=== PATIENT | female | born 1940 | race Caucasian/White ===

== ENCOUNTER 2020-02-06 15:23 | Outpatient (CLI) | payer MEDICARE, SELFPAY ==
--- NOTE | ~2020-02-06 | MM_ITS ---
EXAMINATION: MM screening jonathan BI w ronald HISTORY: Screening TECHNIQUE: Craniocaudal and mediolateral oblique 3-D tomosynthesis images were obtained and synthetic 2-D images were generated. CAD analysis was submitted and interpreted. COMPARISON: Comparison to multiple prior studies sequentially, with oldest reviewed study dated 09/17. BREAST PARENCHYMAL COMPOSITION: The breasts are heterogeneously dense, which may obscure small masses . FINDINGS: There is no evidence of suspicious mass, calcification, or architectural distortion to sugg est malignancy in either breast. There has been no suspicious interval change. IMPRESSION: 1. No mammographic evidence of malignancy. 2. Recommend routine screening mammography in one year. BI-RADS Category 1: Negative Reviewed, dictated and finalized at location A.
== END 2020-02-06 15:24 | disposition home or self-care (01) ==
LOC: ANHIMG 15:25
PROVIDERS: PCP Family Medicine; Visit Provider Family Medicine
DX: Z12.31 Encounter for screening mammogram for malignant neoplasm of breast (principal)
CPT/HCPCS: 77063; 77067

== ENCOUNTER 2021-03-03 09:43 | Outpatient (CLI) | payer MEDICARE, SELFPAY ==
--- NOTE | ~2021-03-03 | MM_ITS ---
EXAMINATION: MM screening jonathan BI w ronald HISTORY: Screening mammogram TECHNIQUE: Craniocaudal and mediolateral oblique 3-D tomosynthesis images were obtained and synthetic 2-D images were generated. CAD analysis was submitted and interpreted. COMPARISON: 02/06/2020, 10/18/2018, 09/29/2017 BREAST PARENCHYMAL COMPOSITION: The breasts are heterogeneously dense, which may obscure small masses . FINDINGS: Scattered benign-appearing calcifications are present. There is no evidence of suspicious m ass, calcification, or architectural distortion to suggest malignancy in either breast. There has bee n no suspicious interval change. IMPRESSION: 1. No mammographic evidence of malignancy. 2. Recommend routine screening mammography in one year. BI-RADS Category 2: Benign finding(s). Reviewed, dictated and finalized at location A.
--- NOTE | ~2021-03-03 | DEXA_ITS ---
Bone Density Report Name: Lucy Lauren Age: 80 Sex: Female Ethnicity: White Date of : 1940 Indication: postmenopausal; height loss; Referring Provider: Cheli White Study: Bone densitometry was performed. Exam Date: March 03, 2021 Accession number: [id number] Bone Density: Region BMD T-score Z-score Classification AP Spine (L1-L4) 1.171 1.1 3.8 Normal Femoral Neck (Left) 0.939 0.8 3.1 Normal Total Hip (Left) 0.888 -0.4 1.6 Normal Total Hip Bilateral Avg 0.888 -0.5 1.6 Normal Femoral Neck (Right) 0.844 0.0 2.2 Normal Total Hip (Right) 0.887 -0.5 1.6 Normal World Health Organization criteria for BMD impression classify patients as: Normal (T-score at or above -1.0), Osteopenia (T-score between -1.0 and -2.5), or Osteoporosis (T-score at or below -2.5). 10-year Fracture Risk: FRAX not reported because: All T-scores for Spine Total, Hip Total, Femoral Neck at or above -1.0 Previous Exams: Region Exam Age BMD T-score BMD Change BMD Change Date g/cm2 vs Baseline vs Previous AP Spine(L1-L4) 03/03/2021 80 1.171 1.1 0.001(0.1%)# 0.162(16.0%)# 05/24/2011 70 1.009 -0.3 -0.161(-13.7%) -0.043(-4.1%)# 04/25/2008 67 1.052 0.0 -0.118(-10.1%) 0.039(3.8%)* 02/02/2005 64 1.014 -0.3 -0.156(-13.4%) -0.156(-13.4%) 11/16/2001 60 1.170 1.1 Total Hip(Left) 03/03/2021 80 0.888 -0.4 -0.081(-8.4%)# 0.013(1.5%) 09/16/2014 73 0.874 -0.6 -0.094(-9.7%)# -0.005(-0.6%)# 05/24/2011 70 0.880 -0.5 -0.089(-9.2%)# -0.022(-2.4%)# 04/25/2008 67 0.902 -0.3 -0.067(-6.9%)* 0.008(0.9%) 02/02/2005 64 0.894 -0.4 -0.075(-7.8%)* -0.075(-7.8%)* 11/16/2001 60 0.969 0.2 Total Hip(Right) 03/03/2021 80 0.887 -0.5 -0.044(-4.8%)# 0.034(4.0%)* 09/16/2014 73 0.853 -0.7 -0.078(-8.4%)# -0.032(-3.6%)# 05/24/2011 70 0.885 -0.5 -0.046(-5.0%)# 0.013(1.5%)# 04/25/2008 67 0.872 -0.6 -0.059(-6.4%)* 0.021(2.4%) 02/02/2005 64 0.851 -0.7 -0.080(-8.6%)* -0.080(-8.6%)* 11/16/2001 60 0.931 -0.1 *Denotes significance at 95% confidence level, LSC for AP Spine = 0.022 g/cm2, LSC for Total Hip = 0.027 g/cm2 Clinical Information Provided by Patient: Has used the following medications: Vitamin D Patient maximum height was 62 No regular weight bearing exercise Drinks caffeinated beverages Onset of menses at age 14 Number of children 1 Impression: The patient has normal
== END 2021-03-03 09:44 | disposition home or self-care (01) ==
LOC: ANHIMG 09:44
PROVIDERS: PCP Family Medicine; Visit Provider Physician Assistant
DX: Z12.31 Encounter for screening mammogram for malignant neoplasm of breast (principal); Z78.0 Asymptomatic menopausal state
CPT/HCPCS: 77063; 77067; 77080

== ENCOUNTER → 2021-09-01 12:26 | Outpatient (CLI) | payer MEDICARE, SELFPAY ==
--- NOTE | ~2021-09-01 | XR_ITS ---
EXAMINATION: XR shoulder RT min 2V DATE: 09/01/2021 12:43 INDICATION: Right shoulder pain TECHNIQUE: AP internally and externally rotated, AP oblique externally rotated and axillary views of the right shoulder were obtained. COMPARISON: None FINDINGS: Normal alignment. No fracture. Glenohumeral joint is normal. Mild right glenohumeral and acromioclav icular osteoarthritis. Moderate-sized anterior subacromial spur. Soft tissues are unremarkable. Visua lized portion of the right lung are clear. IMPRESSION: 1. Mild right acromioclavicular and glenohumeral osteoarthritis 2. Moderate-sized subacromial spur which could predispose towards rotator cuff disease. Reviewed, dictated and finalized at location B.
== END ==
PROVIDERS: PCP Family Medicine; Visit Provider Family Medicine
DX: M19.011 Primary osteoarthritis, right shoulder (principal)
CPT/HCPCS: 73030

== ENCOUNTER 2022-08-10 15:03 | Outpatient (CLI) | payer MEDICARE, SELFPAY ==
--- NOTE | ~2022-08-10 | MM_ITS ---
EXAMINATION: MM screening jonathan BI w ronald HISTORY: Screening mammogram TECHNIQUE: Craniocaudal and mediolateral oblique 3-D tomosynthesis images were obtained and synthetic 2-D images were generated. CAD analysis was submitted and interpreted. COMPARISON: 03/03/2021, 02/06/2020, 10/18/2018 bilateral screening mammogram examinations BREAST PARENCHYMAL COMPOSITION: The breasts are heterogeneously dense, which may obscure small masses . FINDINGS: Scattered bilateral benign calcifications are again noted. There is no evidence of suspicio us mass, calcification, or architectural distortion to suggest malignancy in either breast. There has been no suspicious interval change. IMPRESSION: 1. No mammographic evidence of malignancy. 2. Recommend routine screening mammography in one year. BI-RADS Category 2: Benign finding(s). Reviewed, dictated and finalized at location A.
== END 2022-08-10 15:04 | disposition home or self-care (01) ==
LOC: ANHIMG 15:04
PROVIDERS: PCP Family Medicine; Visit Provider Family Medicine
DX: Z12.31 Encounter for screening mammogram for malignant neoplasm of breast (principal)
CPT/HCPCS: 77063; 77067

== ENCOUNTER 2023-02-28 10:00 | Outpatient (RCR) | payer MEDICARE, SELFPAY ==
--- NOTE | 2023-02-01 14:28 | OPREHPOC ---
Outpatient Therapy Plan of Care This is a Multidisciplinary Plan of Care that may contain components documented by all disciplines (PT, OT, and ST.) PT Problem 1 PT Problem #1 Knowledge Deficit PT Goal 1 Goal Pt to be IND with issued HEP Target Visit 8 PT Problem 2 PT Problem #2 Pain PT Goal 1 Goal Pt to report L hip pain no greater than 3/10 in the last week Target Visit 8 PT Goal 2 Goal Pt to report 75% improvement in overall symptoms Target Visit 8 PT Problem 3 PT Problem #3 Impaired Range of Motion PT Goal 1 Goal Pt to improve passive hip flexion to 110 deg and extension to 10 deg Target Visit 8 PT Goal 2 Goal Pt to improve passive hip int rot to 10 deg Target Visit 8 PT Problem 4 PT Problem #4 Impaired Gait PT Goal 1 Goal Pt to ambulate with an upright posture and without deviations Target Visit 8 PT Goal 2 Goal Pt to improve 2 min walk distance from 272ft to 350 ft. Target Visit 8 PT Problem 5 PT Problem #5 Impaired Functional Mobil PT Goal 1 Goal Pt to be able to complete a floor to stand transfer without external support to aid in gardening. Target Visit 8
--- NOTE | 2023-02-01 14:28 | PTOPEVAL1 ---
Assessment and note entered by Sonja Leigh, PT, DPT Evaluation Information Assessment Status Evaluation Diagnosis gait abnormalities, L hip pain Onset 4-5 months Subjective Information Pt states she was told that she has a tight Psoas and she needs to do some stretching. Pt reports poor balance but now with the pain she has been walking very slowly. She states she will hear cracking sounds in her L hip. She reports difficulty getting up stairs. She has been using a cane when walking in the community for the last month. Her pain increases when she has been sitting for too long. Pt declines any recent falls. Reported Pain Level Pain Score 5: Self Report Assessment PT Clinical Summary Lucy presents to therapy today for her initial evaluation with a diagnosis of gait abnormalities. Today she demonstrates decreased L hip ROM when compared to her R hip. The decreased ROM and pain in her L hip is contributing to gait abnormalities increased flexed posture and an antalgic gait. Skilled therapy services are indicated to address the deficits noted above, to manage pain, and to improve functional mobility. Plan of Care Interventions Electrical Stimulation,Gait Training,Hot Pack/Cold Pack,Manual Therapy,Neuro Re-education,Patient/ Caregiver Educati,Therapeutic Activities, Therapeutic Exercise PT Services Indicated Yes Treatment Frequency and 2x/wk for 8 visits Duration These treatments will address the objective and functional deficits as defined above. The patient will be advanced safely and appropriately in order for the patient to progress towards his/her prior level of function. Additional exercises will be introduced and as well as a comprehensive home exercise program upon discharge, if needed, ?to ensure carryover of functional gains achieved in the clinic. This treatment plan has been reviewed and agreement upon by the patient.
--- NOTE | 2023-02-28 10:22 | PTOPDC ---
Assessment and note entered by Sonja Leigh, PT, DPT Evaluation Information Assessment Status Discharge Diagnosis gait abnormalities, L hip pain Onset 4-5 months Subjective Information Pt states overall she feels like she is making a little bit of progress. Reported Pain Level Pain Score 3: Self Report Assessment PT Clinical Summary Lucy presents to therapy today for her initial evaluation with a diagnosis of gait abnormalities. Today she demonstrates mild improvements in her passive hip ROM but continues to have a hard end feel limiting further ROM. She has improved her upright posture during ambulation but with this her gait speed significantly decreased. She elected to continue her HEP IND and potentially request an ortho consult at her next appointment with her PCP. Plan of Care PT Services Indicated No
== END 2023-02-28 11:11 | disposition home or self-care (01) ==
LOC: ANHGOSHPT 10:00
PROVIDERS: PCP Family Medicine; Visit Provider Nurse Practitioner
DX: R26.89 Other abnormalities of gait and mobility (principal)
CPT/HCPCS: 97110; 97116; 97140; 97161; 97530

== ENCOUNTER → 2023-03-08 13:22 | Outpatient (CLI) | payer MEDICARE, SELFPAY ==
--- NOTE | ~2023-03-08 | XR_ITS ---
AP and lateral views of the left hip Clinical history: Pain Findings: No acute fracture or dislocation is seen. There is severe left hip joint osteoarthritis. Th ere is joint space narrowing, osteophyte formation, reactive sclerosis, and mild remodeling of the fe moral head. Left SI joint is intact. Soft tissues are unremarkable. Impression: Severe osteoarthritis of the left hip joint, as detailed above. No fracture or dislocation. Reviewed, dictated and finalized at location M. Impression: Severe osteoarthritis of the left hip joint, as detailed above. No fracture or dislocation.
== END ==
PROVIDERS: PCP Nurse Practitioner; Visit Provider Nurse Practitioner
DX: M16.12 Unilateral primary osteoarthritis, left hip (principal)
CPT/HCPCS: 73502

== ENCOUNTER 2023-04-12 14:34 | Outpatient (CLI) | payer MEDICARE, SELFPAY ==
--- NOTE | 2023-04-12 15:03 | ECG_ITS ---
Measurements Intervals Trilla Rate: 74 P: 61 OR: 210 QRS: 9 QRSD: 93 T: 9 QT: 380 QTc: 423 Interpretive Statements SINUS RHYTHM WITH FIRST DEGREE AV BLOCK ATRIAL PREMATURE COMPLEX LOW QRS VOLTAGE IN PRECORDIAL LEADS INCOMPLETE RIGHT BUNDLE BRANCH BLOCK CONSIDER INFERIOR INFARCT, AGE INDETERMINATE BASELINE WANDER- V3 ABNORMAL ECG NO PREVIOUS ECG AVAILABLE FOR COMPARISON Electronically Signed On 04-12-2023 15:25:49 [employer] by Leon Jara D.O.
[2023-04-12 15:38] LABS: Albumin Level 4.8 g/dL (3.5-5.1); Estimated Glomerular Filt Rate 60; Glucose 102 mg/dL (65-110)
[2023-04-12 15:39] LABS: Urine Cotinine NEGATIVE
[2023-04-12 15:46] LABS: Hemoglobin A1C 5.3 % (<5.7)
== END 2023-04-12 14:35 | disposition home or self-care (01) ==
PROVIDERS: PCP Family Medicine; Visit Provider Orthopaedic Surgery
DX: Z01.812 Encounter for preprocedural laboratory examination (principal); Z01.810 Encounter for preprocedural cardiovascular examination; M16.12 Unilateral primary osteoarthritis, left hip; I10 Essential (primary) hypertension; R94.6 Abnormal results of thyroid function studies; R73.03 Prediabetes; Z79.899 Other long term (current) drug therapy; I44.0 Atrioventricular block, first degree; I45.10 Unspecified right bundle-branch block
CPT/HCPCS: 80307; 82040; 82565; 82947; 83036; 93005

== ENCOUNTER 2023-05-23 10:29 | Outpatient (CLI) | payer MEDICARE, SELFPAY ==
[2023-05-23 19:16] LABS: Hemoglobin A1C 5.4 % (<5.7)
[2023-05-23 19:18] LABS: Alanine Aminotransferase 18 U/L (6-35); Albumin Level 4.4 g/dL (3.5-5.1); Alkaline Phosphatase 82 U/L (38-126); Anion Gap 10 mmol/L (8-16); Aspartate Amino Transferase 47 U/L (14-36); Bilirubin,Total 0.9 mg/dL (0.2-1.3); Blood Urea Nitrogen 20 mg/dL (7-17); Calcium 10.7 mg/dL (8.4-10.2); Carbon Dioxide 26 mmol/L (22-30); Chloride 104 mmol/L (98-107); Cholesterol 190 mg/dL (0-200); Estimated Glomerular Filt Rate > 60; Glucose 88 mg/dL (65-110); HDL Direct 70 mg/dL; Potassium 4.1 mmol/L (3.4-5.0); Sodium 140 mmol/L (137-145); Triglycerides 117 mg/dL (<150)
[2023-05-23 19:29] LABS: LDL Cholesterol Direct 86 mg/dL
[2023-05-23 19:39] LABS: Hematocrit 35.7 % (37.0-47.0); Hemoglobin 11.5 g/dL (12.0-15.0)
[2023-05-23 19:44] LABS: Vitamin D 25 Hydroxy 58.1 ng/mL
== END 2023-05-23 10:30 | disposition home or self-care (01) ==
PROVIDERS: Orthopaedic Surgery; PCP Family Medicine; Visit Provider Nurse Practitioner
DX: E03.9 Hypothyroidism, unspecified (principal); E55.9 Vitamin D deficiency, unspecified; E78.00 Pure hypercholesterolemia, unspecified; R73.03 Prediabetes
CPT/HCPCS: 36415; 80053; 80061; 82306; 83036; 84443; 85014; 85018

== ENCOUNTER 2023-06-05 10:56 | Outpatient (CLI) | payer MEDICARE, SELFPAY ==
[2023-06-05 13:23] LABS: Alanine Aminotransferase 17 U/L (6-35); Albumin Level 4.4 g/dL (3.5-5.1); Alkaline Phosphatase 80 U/L (38-126); Aspartate Amino Transferase 40 U/L (14-36); Bilirubin,Total 0.8 mg/dL (0.2-1.3); Calcium 10.8 mg/dL (8.4-10.2)
== END 2023-06-05 10:57 | disposition home or self-care (01) ==
PROVIDERS: PCP Family Medicine; Visit Provider Nurse Practitioner
DX: R74.8 Abnormal levels of other serum enzymes (principal); E83.52 Hypercalcemia
CPT/HCPCS: 36415; 80076; 82310

== ENCOUNTER 2023-06-14 09:13 | Outpatient (CLI) | payer MEDICARE, SELFPAY ==
--- NOTE | ~2023-06-14 | NM_ITS ---
EXAMINATION: NM terry stress w perfusion DATE: 06/14/2023 12:36 INDICATION: Other forms of dyspnea TECHNIQUE: Rest images were obtained following intravenous administration of 9.8 mCi Tc99m tetrofosmi n (Myoview). The patient was infused intravenously with Lexiscan (Regadenoson). Then, 30 mCi Tc99m te trofosmin (Myoview) was administered intravenously, and stress images were obtained. Data was reconst ructed into short axis and horizontal and vertical long axis SPECT images. Gated SPECT images were al so obtained. COMPARISON: None. FINDINGS: There is no definite reversible or fixed perfusion abnormality to suggest ischemia or infar ction. There is normal left ventricular chamber size, wall motion and ejection fraction. Left ventr icular ejection fraction measures >70%. IMPRESSION: 1. Normal myocardial perfusion at rest and during stress. 2. Left ventricular ejection fraction measuring >70%. Reviewed, dictated and finalized at location A. [facility]
--- NOTE | 2023-06-14 09:44 | EST_ITS ---
Patient Info Name: Lucy Lauren Age: 82 years : 1940 Gender: Female Ht: 61 in Wt: 130 lbs BSA: 1.60 m2 HR: 70 bpm BP: 139 / 74 mmHg Exam Date: 06/14/2023 11:02 AM Exam Location: [facility] Patient Status: Outpatient Admit Date: 06/14/2023 Staff Ordering Physician: Leon Jara DO Attending Provider: Leon Jara DO Exercise Technologist: Yesi Albarado RDCS Exercise Physician: Leon Jara DO Exam Type: CA stress terry w NM Study Info A regadenoson stress test was performed. Summary 1. 1. Negative lexiscan stress test for ischemic ST changes by ECG criteria. 2. 2. Stable hemodynamics throughout the test. 3. 3. Nuclear scan to follow and will be reported separately. Please correlate with it. 4. 4. Patient informed of the above results. Protocol: Lexiscan Stress ECG Details Stage: REST Duration (min): 1 min : 23 sec HR (bpm): 70 SBP (mmHg): 139 DBP (mmHg): 74 Stage: REST Duration (min): 5 min : 26 sec HR (bpm): 74 SBP (mmHg): 139 DBP (mmHg): 74 Stage: STAGE 1 Duration (min): 1 min : 0 sec HR (bpm): 82 SBP (mmHg): 143 DBP (mmHg): 73 Stage: RECOVERY Duration (min): 1 min : 0 sec HR (bpm): 89 SBP (mmHg): 143 DBP (mmHg): 73 Stage: RECOVERY Duration (min): 2 min : 0 sec HR (bpm): 87 SBP (mmHg): 143 DBP (mmHg): 73 Stage: RECOVERY Duration (min): 3 min : 0 sec HR (bpm): 86 SBP (mmHg): 143 DBP (mmHg): 60 Stage: RECOVERY Duration (min): 3 min : 13 sec HR (bpm): 84 SBP (mmHg): 143 DBP (mmHg): 60 Rest HR: 74 bpm Peak HR: 89 bpm Rest Sys BP: 139 mmHg Peak Sys BP: 143 mmHg Max Pred HR: 139 bpm % Max Pred HR: 64 % Target HR: 118 bpm Max RPP: 12,727 bpm*mmHg Termination Reason: Completed protocol Cardiac Symptoms: Shortness of breath Total Time: 1 min : 0 sec Rest Quinn BP: 74 mmHg Peak Quinn BP: 73 mmHg Total Dose: 0.4 mg Resting ECG Sinus rhythm. Stress ECG No ST changes. Arrhythmias None. Report Signatures
== END 2023-06-14 09:14 | disposition home or self-care (01) ==
PROVIDERS: PCP Family Medicine; Visit Provider Internal Medicine Cardiovascular Disease
DX: R06.09 Other forms of dyspnea (principal)
CPT/HCPCS: 78452; 93017; A9502; J2785

== ENCOUNTER 2023-09-11 12:33 | Outpatient (CLI) | payer MEDICARE, SELFPAY ==
[2023-09-11 15:33] LABS: Alanine Aminotransferase 19 U/L (6-35); Albumin Level 4.7 g/dL (3.5-5.1); Alkaline Phosphatase 81 U/L (38-126); Anion Gap 8 mmol/L (4-12); Aspartate Amino Transferase 40 U/L (14-36); Blood Urea Nitrogen 28 mg/dL (7-17); Calcium 10.8 mg/dL (8.4-10.2); Carbon Dioxide 27 mmol/L (22-30); Chloride 104 mmol/L (98-107); Cholesterol 176 mg/dL (0-200); Estimated Glomerular Filt Rate > 60; Glucose 101 mg/dL (65-110); HDL Direct 78 mg/dL; Potassium 4.4 mmol/L (3.4-5.0); Sodium 139 mmol/L (137-145); Triglycerides 110 mg/dL (<150)
[2023-09-11 15:40] LABS: Vitamin D 25 Hydroxy 59.9 ng/mL
[2023-09-11 15:44] LABS: LDL Cholesterol Direct 82 mg/dL
== END 2023-09-11 12:34 | disposition home or self-care (01) ==
LOC: ANHGOSHLAB 12:46
PROVIDERS: PCP Family Medicine; Visit Provider Nurse Practitioner
DX: E03.9 Hypothyroidism, unspecified (principal); E78.5 Hyperlipidemia, unspecified; E55.9 Vitamin D deficiency, unspecified
CPT/HCPCS: 36415; 80053; 80061; 82306; 83970; 84443

== ENCOUNTER 2023-09-15 09:35 | Outpatient (CLI) | payer MEDICARE, SELFPAY ==
[2023-09-15 10:47] LABS: Basophils Percent Auto 0.2 % (0.2-1.2); Eosinophils Absolute Auto 0.1 K/mm3 (0-0.3); Eosinophils Percent Auto 1.2 % (0-4.4); Hematocrit 35.2 % (37.0-47.0); Hemoglobin 11.6 g/dL (12.0-15.0); Immature Granulocyte Absolute 0.04 K/mm3 (0.00-0.031); Lymphocytes Absolute Auto 1.47 K/mm3 (0.9-3.2); Lymphocytes Percent Auto 34.9 % (18.3-44.2); Mean Corpuscular Hemoglobin 33.1 pg (26-34); Mean Corpuscular Volume 100.6 fl (80-100); Mean Platelet Volume 10.7 fl (7.4-10.4); Monocytes Absolute Auto 0.6 K/mm3 (0.1-0.6); Monocytes Percent Auto 15.2 % (2.6-8.5); Neutrophils Percent Auto 47.5 % (45.5-73.1); Platelet Count Result 169 k/mm3 (150-375); Red Cell Distribution Width 12.3 % (11.5-14.5); White Blood Count 4.2 K/mm3 (4.5-10.0)
[2023-09-15 10:56] LABS: Urine Cotinine NEGATIVE
[2023-09-15 11:01] LABS: Hemoglobin A1C 5.2 % (<5.7)
[2023-09-15 12:02] LABS: MRSA (PCR) NOT DETECTED (NOT DETECTE)
== END 2023-09-15 09:36 | disposition home or self-care (01) ==
LOC: ANHSURGERY 09:39
PROVIDERS: PCP Family Medicine; Visit Provider Orthopaedic Surgery
DX: M16.12 Unilateral primary osteoarthritis, left hip (principal); Z01.818 Encounter for other preprocedural examination
CPT/HCPCS: 80307; 83036; 85025; 87641

== ENCOUNTER 2023-10-12 00:52 | Day surgery (SDC) | payer MEDICARE, SELFPAY ==
--- NOTE | 2023-09-15 09:25 | PC.NURSE ---
PRE-OP INSTRUCTIONS, PLEASE READ CAREFULLY Report to the Outpatient Waiting Room, entrance under the green pavilion located off [facility], at time _0600_ on date _10/12/23_. Planned Procedure Time: _0730_. PACK A SMALL OVERNIGHT BAG AND LEAVE IN THE CAR Time changes happen often and if your time is changed the preop area will call you the afternoon before. - You and your visitor will be asked to self-screen and do not enter if you have any COVID symptoms. - A mask is optional within the hospital at this time. -VISITING HOURS 8AM-8PM Patients may have clear liquids (water, carbonated beverages, clear teas, apple juice) until 3 hours prior to surgery (0430 AM) with a maximum of 20 ounces. - No food from midnight until time of surgery Take the following medications with a SIP of water the morning of surgery: _AMLODIPINE, & TYLENOL IF NEEDED_ DO NOT STOP ANY OF YOUR OTHER PRESCRIPTION MEDICATIONS PRIOR TO SURGERY ?EXCEPT THE FOLLOWING Medications to discontinue per DR. BOWIE - _ASPIRIN, NAPROXEN 7 DAYS PRIOR TO SURGERY, Date to take last dose 10/04/23_ Medications to discontinue per ANESTHESIA -_MULTIVITAMIN/SUPPLEMENTS 3 DAYS PRIOR TO SURGERY, Date to take last dose 10/08/23_ Please no make-up, nail wolof, hairspray, perfume, deodorant, or body powder the day of surgery. No jewelry (including any body piercings) or valuables the day of surgery, leave them at home. Please take a shower or bath the night before, or the morning of, surgery with an antibacterial soap. Wear comfortable, loose fitting clothing. - Jewelry must be removed prior to entering the operating room. Rings and piercings that are not removed may be cut off. - The hospital will not accept responsibility for valuables. - Please leave all valuables, including medications, at home the day of surgery. If you are going home after surgery, a licensed taxi truck driver must drive you home. - NO public transportation without another adult if you receive anesthesia. - We recommend that an adult stay with you for 24 hours following discharge. - We also recommend that you do not drive, make important decision, drink alcoholic beverages, or take any drugs that were not prescribed by your health care provider for at least 24 hours after your discharge time. Follow any additional instructions given to you from your surgeon. If you or anyone in your household have experienced Covid symptoms in the past week, please notify your surgeon or the nurse liaison at the phone number below for possible testing. Instructions given to _PATIENT & SPOUSE_and asked if any additional questions and then verbalized understanding. Patient advised to call surgeon office or pre surgery nurse liaison [phone] if any additional questions.
[2023-09-15 10:04] VITALS: BP 132/62; PULSE 84; RESP 16; TEMP 36.8; O2SAT 100; BMI 25.6
[2023-10-12] VITALS (12 sets, daily range): BP systolic 109–142; BP diastolic 50–66; PULSE 64–90; RESP 14–20; TEMP 36–37.2; O2SAT 92–97; BMI 25.2
--- NOTE | ~2023-10-12 | XR_ITS ---
Left Hip Technique: Portable AP view Clinical History: Status post hip arthroplasty Findings: Patient is status post left hip arthroplasty. Orthopedic hardware alignment appears anatomi c. No hardware complication is evident. Subcutaneous emphysema and swelling is likely postoperative i n nature. No acute osseous fracture is seen. Impression: Status post total left hip arthroplasty, without evidence of hardware complication. Reviewed, dictated and finalized at location . Impression: Status post total left hip arthroplasty, without evidence of hardware complicat ion.
[2023-10-12] MEDS: LACTATED RINGERS 1,000 ML 30 ML IV CONT ×3 (06:30→09:07)
[2023-10-12] MEDS: ACETAMINOPHEN 500 MG TABLET 1000 MG PO (06:43)
--- NOTE | 2023-10-12 06:55 | WPDHPUPDATE1 ---
History and Physical Update Update Date/Time: 10/12/23 06:55 History and Physical has been reviewed, including an updated exam of the patient. There are NO changes in the patient's condition. Risks, benefits, and alternatives have been discussed and questions answered. Patient agrees to proceed with procedure.
[2023-10-12] MEDS: TRANEXAMIC ACID 1,000MG/ISO100 1,000 MG/100 ML BAG 200 MG IVPB (06:58)
--- NOTE | 2023-10-12 07:10 | WPDANESEPPF ---
Anes - Initial Pre Proc Eval Procedure: Operation Date: 10/12/23 07:30 Proposed Procedures p Left Total Hip Arthroplasty - Kory Teixeira MD Date/Time: 10/12/23 07:10 Surgeon: Kory Teixeira MD Pre Op Diagnosis: primary oa left hip Patient Data Age: 82 Gender: F Height: 1.5 m Weight: 56.6 kg Last Vital Signs Temp 98.3 F 09/15/23 10:04 Pulse 84 09/15/23 10:04 Resp 16 09/15/23 10:04 BP 132/62 09/15/23 10:04 Pulse Ox 100 09/15/23 10:04 O2 Del Method Room Air 09/15/23 10:04 Allergies Allergy/AdvReac Type Severity Reaction Status Date / Time Penicillins Allergy Unknown Skin Verified 10/12/23 06:41 Reaction clindamycin AdvReac Mild MILD Verified 10/12/23 06:41 ITCHING Home Medications Medication Instructions Recorded Confirmed Type cholecalciferol (vitamin D3) 25 25 mcg PO DAILY 06/04/19 10/12/23 History mcg (1,000 unit) capsule (Vitamin D3) multivitamin 1 cap PO DAILY 06/04/19 10/12/23 History aspirin 81 mg tablet,delayed 81 mg PO DAILY 08/27/20 10/12/23 History release (Adult Aspirin Regimen) omega-3 fatty acids 1,000 mg 1,000 mg PO DAILY 08/27/20 10/12/23 History capsule (Fish Oil Concentrate) melatonin 10 mg capsule 10 mg PO QHS 01/26/23 09/15/23 History amlodipine 5 mg tablet 5 mg PO DAILY #100 tabs 07/28/23 10/12/23 Rx atorvastatin 20 mg tablet 20 mg PO DAILY #100 tabs 07/28/23 09/15/23 Rx lisinopril 20 1 tablet PO DAILY #100 tabs 07/28/23 09/15/23 Rx mg-hydrochlorothiazide 12.5 mg tablet sertraline 100 mg tablet See Rx Instructions .Route 08/17/23 09/15/23 Rx .COMPLEX #90 tabs sertraline 25 mg tablet 25 mg PO DAILY #60 tabs 09/13/23 09/15/23 Rx acetaminophen 650 mg 650 mg PO Q8H PRN Pain 09/15/23 09/15/23 History tablet,extended release naproxen 500 mg tablet See Rx Instructions .Route 09/15/23 10/12/23 History .COMPLEX PRN Pain Laboratory Tests 10/12/23 06:36 Blood Type Pending Antibody Screen Pending Patient hx anesthesia problems: none Family hx anesthesia problems: none Results Review: All pre-operative results and documents have been reviewed as part of the pre-operative evaluation. PMFSH Past Medical History Medical History Arthritis of left hip Cataract Surgical History Surgical History H/O colonoscopy History of carpal tunnel surgery Family History Family History Grandparent Depression Hypertension Family history of coronary artery disease Mother Depression Sibling Depression Father Hypertension Family history of cardiovascular disease Family history of cardiac disorder Malignant neoplasm of prostate Family history of coronary artery disease Other Family history of elevated blood lipids Social History Social History Smoking status: Former smoker Tobacco type: cigarettes Second hand tobacco smoke exposure: No Additional smoking assessment comments: STATES ONLY SMOKED FOR SHORT TIME IN COLLEGE-DENIES ALL FORMS OF TOBACCO Alcohol intake: current Drinks per week: 7 Alcohol use details: STATES WAS ABOUT 7, NOW ABOUT 2-3 CLASSES WINE/WEEK Substance use: never Substance use type: does not use Lack of Transportation: No Lack of Food: Never True Current Housing: I Have Housing Concerned About Future Housing: No Difficulty Paying Gas/Electric Bills: No Difficulty Paying for Meds: No Currently Unemployed: No Education: High School Diploma/GED Difficulty w/ Childcare or Family Care: No Living arrangements: with family Spiritual care concerns: No Anes - Eval Final PreProcedure Day of Procedure 10/12/23 07:10 Patient weight: normal Heart: regular rate and rhythm Lungs: clear to a
[2023-10-12] MEDS: ceFAZolin 2 GM/D5W 50 ML 2 GM/50 ML BAG IVPB ×2 (07:24→16:26)
[2023-10-12] MEDS: SODIUM CHLORIDE 0.9% IV 37.7 ML, MORPHINE SULFATE INJ (*CRX) 2 MG, ROPivacaine HCL 1% 2... INFILTRATE (08:10)
--- NOTE | 2023-10-12 09:09 | W.PM.PROC2 ---
Procedure Note - Detailed Date of Procedure 10/12/23 Pre-op Diagnosis primary oa left hip Post-op Diagnosis Same Procedure Performed Left Total Hip Arthroplasty Surgeon Kory Teixeira MD Paraprofessional Aide Bethany Casiano PA-C Anesthesia General Findings Collapse of the femoral head with severe degenerative changes. Bone quality good. Sizing matched preoperative templating. Description of Procedure The patient was given preoperative antibiotics. A general anesthetic was administered. The patient was carefully placed in the lateral decubitus position on the PEG board. The shoulders and hips were carefully positioned for component and leg length positioning reference. The hip was prepped and draped in the usual sterile fashion. A longitudinal incision was created over the posterior aspect of the greater trochanter. Careful dissection was brought down through the deep fascia with electrocautery. A minimally invasive optimized posterior approach to the hip was performed. The short external rotators and capsule were taken down in an L-shaped capsulotomy. The tissue was tagged for later repair using number 2 high strength suture. The femoral neck was measured and taken in situ. The femoral head was removed. The acetabulum was carefully exposed. The inferior capsule was released. The labrum was resected. The acetabulum was sequentially reamed to the intended cup size. The cup was impacted into position with excellent press-fit. Typical anatomic landmarks, including the bony contact points as well as the inferior transverse acetabular ligament were used to confirm cup positioning with preoperative templating. Attention was turned to the femur, which was carefully exposed. The hip was reamed and then broached sequentially. Excellent press-fit was obtained with the broach. The hip was trialed. Measurements were utilized, including the lesser trochanter as well as the center of the femoral head and the tip of the trochanter, and excellent assessment of the offset and leg lengths were confirmed. The real component was impacted into position. Trialing confirmed appropriate leg length and offset with soft tissue balancing as well apparent feel of the leg, both at the knee and the heel. Soft tissues were assessed using the the iliotibial band. Reduction of the posterior capsule and external rotators were also used as a secondary assessment. The hip was copiously irrigated with pulsatile lavage periodically throughout the procedure. The real components were then assembled and reduced. The hip was stable throughout typical maneuvers, including extension, external rotation to 70 degrees, the position of sleep as well as flexion to 90 degrees with internal rotation past 35 degrees. The shake test confirmed stability without impingement. Osteophytes were removed as necessary. The short external rotators and capsule were repaired back to the posterior trochanter through drill holes. The deep fascia was repaired with running number 2 barbed suture, followed by 2-0 Stratafix suture and 3-0 Stratafix suture in the dermis. Steri-Strips were placed on the skin, followed by a sterile occlusive dressing. There were no complications. Meticulous hemostasis was maintained with the AquaMantys device. The patient was brought to the recovery room in stable condition. There were no complications. Physician medical assistant cardiology, Bethany Casiano PA-C, required for surgery; including patient positioning, draping, tissue retraction, maintaining instrument position, hip dislocation/ relocation, wound closure, and dressing placement. Implants The Accolade II hip stem, 127 degree size 4 , was utilized with excellent press-fit. The 48 mm Trident II acetabular component was impacted with excellent press-fit stability. Standard polyethylene liner the -2.5, 36 mm Biolox ceramic femoral head was utilized. Estimated Blood Loss 300 Drains No Packing No Pathology None sent Complications
[2023-10-12] MEDS: ACETAMINOPHEN 325 MG TABLET 650 MG PO (16:26)
[2023-10-12] MEDS: hydroCHLOROthiazide 12.5 MG CAPSULE PO (16:27)
[2023-10-12] MEDS: lisinopriL 20 MG TABLET PO (16:27)
[2023-10-12] MEDS: SENNA/DOCUSATE SODIUM TABLET 2 TAB PO (16:28)
[2023-10-12] MEDS: ATORVASTATIN 20 MG TABLET PO (16:28)
[2023-10-12] MEDS: FAMOTIDINE 20 MG TABLET PO (20:29)
[2023-10-12] MEDS: ASPIRIN 81 MG ENTERIC TABLET PO (20:29)
[2023-10-12] MEDS: MELATONIN 5 MG TABLET 10 MG PO (20:29)
[2023-10-12] MEDS: SERTRALINE HCL 50 MG TABLET 100 MG PO (20:29)
[2023-10-13 00:15] VITALS: BP 119/41; PULSE 83; RESP 16; TEMP 36.8; O2SAT 95
[2023-10-13] MEDS: ACETAMINOPHEN 325 MG TABLET 650 MG PO ×3 (00:34→12:36)
[2023-10-13] MEDS: ceFAZolin 2 GM/D5W 50 ML 2 GM/50 ML BAG IVPB ×2 (00:35→08:10)
[2023-10-13] MEDS: traMADol HCL (*CRX) 50 MG TABLET PO (00:35)
[2023-10-13 04:45] VITALS: BP 100/40; PULSE 72; RESP 16; TEMP 36.9; O2SAT 93
[2023-10-13] MEDS: oxyCODONE/ACETAMINOPHEN (*CRX) 5-325 MG TABLET 1 TABLET PO ×2 (06:31→12:36)
[2023-10-13 06:41] LABS: Basophils Percent Auto 0.1 % (0.2-1.2); Hematocrit 25.6 % (37.0-47.0); Hemoglobin 8.6 g/dL (12.0-15.0); Immature Granulocyte Absolute 0.17 K/mm3 (0.00-0.031); Immature Granulocyte Percent A 1.7 % (0-0.5); Lymphocytes Absolute Auto 1.35 K/mm3 (0.9-3.2); Lymphocytes Percent Auto 13.2 % (18.3-44.2); Mean Corpuscular HGB Conc 33.6 g/dl (32-36); Mean Corpuscular Hemoglobin 33.7 pg (26-34); Mean Corpuscular Volume 100.4 fl (80-100); Mean Platelet Volume 10.5 fl (7.4-10.4); Monocytes Absolute Auto 1.1 K/mm3 (0.1-0.6); Monocytes Percent Auto 10.8 % (2.6-8.5); Neutrophils Absolute Auto 7.6 K/mm3 (1.3-6.7); Neutrophils Percent Auto 74.2 % (45.5-73.1); Platelet Count Result 138 k/mm3 (150-375); Red Blood Count 2.55 M/mm3 (4.2-5.4); Red Cell Distribution Width 12.4 % (11.5-14.5); White Blood Count 10.2 K/mm3 (4.5-10.0)
[2023-10-13 06:52] LABS: Anion Gap 6 mmol/L (4-12); Blood Urea Nitrogen 23 mg/dL (7-17); Calcium 9.3 mg/dL (8.4-10.2); Carbon Dioxide 25 mmol/L (22-30); Chloride 106 mmol/L (98-107); Estimated Glomerular Filt Rate > 60; Glucose 117 mg/dL (65-110); Potassium 3.4 mmol/L (3.4-5.0); Sodium 137 mmol/L (137-145)
--- NOTE | 2023-10-13 08:17 | P.PNAN_ITS ---
Anes - Prog Note Post-Op Date/Time: 10/13/23 08:17 Cardiovascular status: normal Respiratory status: normal Airway patency: baseline Mental status: baseline Post-Op hydration status: normal Vital Signs: Last Vital Signs Temp 36.9 C 10/13/23 04:45 Pulse 72 10/13/23 04:45 Resp 16 10/13/23 04:45 BP 100/40 L 10/13/23 04:45 Pulse Ox 93 10/13/23 04:45 O2 Del Method Room Air 10/12/23 23:17 O2 Flow Rate 8 10/12/23 09:20 Pain Score (VAS): 0 I/O: Intake & Output 10/12/23 10/13/23 10/13/23 23:59 07:59 15:59 Intake Total 290 200 Balance 290 200 Laboratory Tests 10/13/23 06:29 10/13/23 06:29 10/13/23 06:29 WBC 10.2 H RBC 2.55 L Hgb 8.6 L D Hct 25.6 L MCV 100.4 H MCH 33.7 MCHC 33.6 RDW 12.4 Plt Count 138 L MPV 10.5 H Immature Gran % (Auto) 1.7 H Neut % (Auto) 74.2 H Lymph % (Auto) 13.2 L [place] % (Auto) 10.8 H Eos % (Auto) 0.0 Baso % (Auto) 0.1 L Lymph # (Auto) 1.35 [place] # (Auto) 1.1 H Eos # (Auto) 0.0 Baso # (Auto) 0.0 Abs Immat Gran (auto) 0.17 H Absolute Neuts (auto) 7.6 H Absolute Nucleated RBC 0.000 Nucleated RBC % 0.0 Sodium 137 Potassium 3.4 Chloride 106 Carbon Dioxide 25 Anion Gap 6 BUN 23 H Creatinine 0.80 Estim Creat Clear Calc Not Reportable Estimated GFR > 60 Glucose 117 H Calcium 9.3 Patient Feedback: Patient satisfied with anesthetic care.
--- NOTE | 2023-10-13 08:42 | PM.DS ---
DS: Admitting Diagnosis Discharge Date 10/13/23 Admitting Diagnosis Hip arthritis. DS: Discharge Diagnosis Discharge Diagnosis (1) Status post total hip replacement, left: Code(s): Z96.642 - Presence of left artificial hip joint Status: Acute Assessment and Plan: Postop day 1: Total hip arthroplasty. Patient tolerated procedure well. No complications. Patient's hemoglobin did drop slight. We discussed that this can cause some tiredness and lightheadedness. She is not feeling any of that at this time. Will attempt to limit narcotic pain medication if able. Patient's pressures were soft, however this was likely due to the pain medications she was given last night. Pain manageable with pain medication. No numbness or tingling. We had a lengthy discussion regarding postoperative wound care, limitations, expectations, and exercises. Patient shows good understanding. Patient has had initial physical therapy and is tolerating it well. DVT prophylaxis: 81 mg baby aspirin b.i.d. for 14 days. Short frequent walks. Pain medication: Percocet. Limit narcotics if able. Will try 1/2 a tablet if needed. Patient has followup appointment with Dr. Teixeira in 3 weeks DS: Summary Hospital Course Reason for hospitalization: Total hip arthroplasty Hospital Course: Patient tolerated procedure well. Has had initial PT/OT. Status at Discharge Functional status at discharge: uses cane/walker Overall status at discharge: patient is progressing back to baseline Time Spent with Patient Time attestation: Total time spent providing and/or coordinating discharge services: Exam Narrative: Normal weight 82 y/o female. Resting comfortably in bed. Wearing compression socks bilaterally. Dressing dry and intact with no drainage. Moderate swelling. No ecchymosis. No erythema. No hematoma. Range of motion limited due to pain. Calf nontender. Thigh nontender. Neurologic status intact. No varicosities. Distal pulses palpable. DS: Data Data Completed and Pending Labs on day of discharge: Labs from last 24 hours 10/13/23 06:29 WBC 10.2 H RBC 2.55 L Hgb 8.6 L D Hct 25.6 L MCV 100.4 H MCH 33.7 MCHC 33.6 RDW 12.4 Plt Count 138 L MPV 10.5 H Immature Gran % (Auto) 1.7 H Neut % (Auto) 74.2 H Lymph % (Auto) 13.2 L [place] % (Auto) 10.8 H Eos % (Auto) 0.0 Baso % (Auto) 0.1 L Lymph # (Auto) 1.35 [place] # (Auto) 1.1 H Eos # (Auto) 0.0 Baso # (Auto) 0.0 Abs Immat Gran (auto) 0.17 H Absolute Neuts (auto) 7.6 H Absolute Nucleated RBC 0.000 Nucleated RBC % 0.0 Sodium 137 Potassium 3.4 Chloride 106 Carbon Dioxide 25 Anion Gap 6 BUN 23 H Creatinine 0.80 Estim Creat Clear Calc Not Reportable Estimated GFR > 60 Glucose 117 H Calcium 9.3 Discharge Plan Discharge Patient Disposition: Home, Self-Care Discharge Instructions: See green instruction sheets Limit narcotic pain medication when able. Try taking 1/2 a pill. Stand Alone Forms: General Discharge Instructions Follow-up/Referrals: Bethany Casiano PA [Physician Extension Edger] - Discharge Medications: New aspirin 81 mg tablet,delayed release (DR/EC) 81 mg PO BID 14 Days Qty: 28 0RF oxycodone-acetaminophen 5-325 mg tablet 1 - 2 tablet PO Q4-6H MDD 6 PRN (Reason: pain) Qty: 30 0RF Continued melatonin 10 mg capsule 10 mg PO QHS sertraline 25 mg tablet 25 mg PO DAILY Qty: 60 0RF Rx Instructions: Take with your 100mg Sertraline tablet for a total daily @ HS FOR dose of 125mg cholecalciferol (vitamin D3) [Vitamin D3] 25 mcg (1,000 unit) capsule 25 mcg PO DAILY multivitamin Capsule 1 cap PO DAILY aspirin [Adult Aspirin Regimen] 81 mg tablet,delayed release (DR/EC) 81 mg PO DAILY omega-3 fatty acids [Fish Oil Concentrate] 1,000 mg capsule 1,000 mg PO DAILY acetaminophen 650 mg Tablet Extended Release 650 mg PO Q8H PRN (Reason: Pain) nap
[2023-10-13] MEDS: FAMOTIDINE 20 MG TABLET PO (09:30)
[2023-10-13] MEDS: SENNA/DOCUSATE SODIUM TABLET 2 TAB PO (09:30)
[2023-10-13] MEDS: ATORVASTATIN 20 MG TABLET PO (09:30)
[2023-10-13] MEDS: ASPIRIN 81 MG ENTERIC TABLET PO (09:30)
[2023-10-13] MEDS: polyethylene glycoL 3350 17 GM POWD.PACK PO (09:31)
[2023-10-13 11:54] VITALS: BP 112/52; PULSE 80; RESP 16; TEMP 36.5; O2SAT 95
== END 2023-10-13 13:00 | disposition home or self-care (01) ==
LOC: ANHSURGERY 07:22 → ANH3MEDSUR 10:15
PROVIDERS: Physician Assistant Surgical; PCP Family Medicine; Visit Provider Orthopaedic Surgery
PROC: (CPT 27130; principal; 2023-10-12 07:30)
DX: M16.12 Unilateral primary osteoarthritis, left hip (principal); I10 Essential (primary) hypertension; E78.00 Pure hypercholesterolemia, unspecified; Z87.891 Personal history of nicotine dependence; Z79.82 Long term (current) use of aspirin
CPT/HCPCS: 27130; 36415; 73502; 80048; 80307; 83036; 85025; 86850; 86900; 86901; 87641; 97110; 97116; 97161; 97165; 97530; 97535; A9270; C1713; C1776; J0171; J0690; J1100; J1170; J1885; J2250; J2270; J2405; J2704; J2795; J3010; J7120

== ENCOUNTER 2024-01-06 09:13 | Outpatient (CLI) | payer MEDICARE, SELFPAY ==
--- NOTE | ~2024-01-06 | MM_ITS ---
EXAMINATION: MM screening jonathan BI w ronald HISTORY: Screening TECHNIQUE: Craniocaudal and mediolateral oblique 3-D tomosynthesis images were obtained and synthetic 2-D images were generated. CAD analysis was submitted and interpreted. COMPARISON: Comparison to multiple prior studies sequentially, with oldest reviewed study dated 09/22. BREAST PARENCHYMAL COMPOSITION: Dense: The breasts are heterogeneously dense, which may obscure small masses FINDINGS: There is no evidence of suspicious mass, calcification, or architectural distortion to sugg est malignancy in either breast. There has been no suspicious interval change. IMPRESSION: 1. No mammographic evidence of malignancy. 2. Recommend routine screening mammography in one year. BI-RADS Category 1: Negative Reviewed, dictated and finalized at location B.
== END 2024-01-06 09:14 | disposition home or self-care (01) ==
LOC: ANHIMG 09:15
PROVIDERS: PCP Family Medicine; Visit Provider Family Medicine
DX: Z12.31 Encounter for screening mammogram for malignant neoplasm of breast (principal)
CPT/HCPCS: 77063; 77067

== ENCOUNTER 2024-01-15 09:07 | Outpatient (CLI) | payer MEDICARE, SELFPAY ==
[2024-01-15 14:26] LABS: Hemoglobin 11.4 g/dL (12.0-15.0); Mean Corpuscular HGB Conc 33.5 g/dl (32-36); Mean Corpuscular Hemoglobin 33.9 pg (26-34); Mean Corpuscular Volume 101.2 fl (80-100); Mean Platelet Volume 11.6 fl (7.4-10.4); Platelet Count Result 181 k/mm3 (150-375); Red Blood Count 3.36 M/mm3 (4.2-5.4); Red Cell Distribution Width 12.6 % (11.5-14.5); White Blood Count 3.7 K/mm3 (4.5-10.0)
[2024-01-15 15:14] LABS: Alanine Aminotransferase 18 U/L (6-35); Albumin Level 4.4 g/dL (3.5-5.1); Alkaline Phosphatase 68 U/L (38-126); Anion Gap 9 mmol/L (4-12); Aspartate Amino Transferase 53 U/L (14-36); Bilirubin,Total 0.6 mg/dL (0.2-1.3); Blood Urea Nitrogen 25 mg/dL (7-17); Calcium 10.3 mg/dL (8.4-10.2); Carbon Dioxide 29 mmol/L (22-30); Chloride 101 mmol/L (98-107); Cholesterol 167 mg/dL (0-200); Estimated Glomerular Filt Rate > 60; Glucose 96 mg/dL (65-110); HDL Direct 72 mg/dL; Potassium 4.1 mmol/L (3.4-5.0); Sodium 139 mmol/L (137-145); Triglycerides 82 mg/dL (<150)
[2024-01-15 15:27] LABS: LDL Cholesterol Direct 68 mg/dL
[2024-01-15 17:27] LABS: Hemoglobin A1C 5.7 % (<5.7)
== END 2024-01-15 09:08 | disposition home or self-care (01) ==
LOC: ANHGOSHLAB 09:09
PROVIDERS: PCP Family Medicine; Visit Provider Nurse Practitioner
DX: E03.9 Hypothyroidism, unspecified (principal); E55.9 Vitamin D deficiency, unspecified; E66.3 Overweight; E78.00 Pure hypercholesterolemia, unspecified; R73.03 Prediabetes; Z00.00 Encounter for general adult medical examination without abnormal findings
CPT/HCPCS: 36415; 80053; 80061; 82306; 83036; 84443; 85027

== ENCOUNTER 2024-06-10 10:40 | Outpatient (CLI) | payer MEDICARE, SELFPAY ==
[2024-06-10 13:38] LABS: Hematocrit 33.1 % (37.0-47.0); Hemoglobin 10.8 g/dL (12.0-15.0); Mean Corpuscular HGB Conc 32.6 g/dl (32-36); Mean Corpuscular Volume 101.2 fl (80-100); Mean Platelet Volume 12.2 fl (7.4-10.4); Platelet Count Result 154 k/mm3 (150-375); Red Blood Count 3.27 M/mm3 (4.2-5.4); Red Cell Distribution Width 12.3 % (11.5-14.5); White Blood Count 3.8 K/mm3 (4.5-10.0)
[2024-06-10 14:42] LABS: Alanine Aminotransferase 17 U/L (6-35); Albumin Level 4.2 g/dL (3.5-5.1); Alkaline Phosphatase 71 U/L (38-126); Anion Gap 6 mmol/L (4-12); Aspartate Amino Transferase 41 U/L (14-36); Bilirubin,Total 1.3 mg/dL (0.2-1.3); Blood Urea Nitrogen 26 mg/dL (7-17); Calcium 10.2 mg/dL (8.4-10.2); Carbon Dioxide 27 mmol/L (22-30); Chloride 105 mmol/L (98-107); Cholesterol 158 mg/dL (0-200); Estimated Glomerular Filt Rate > 60; Glucose 92 mg/dL (65-110); HDL Direct 69 mg/dL; Sodium 138 mmol/L (137-145); Triglycerides 76 mg/dL (<150)
[2024-06-10 14:50] LABS: Vitamin D 25 Hydroxy 63.2 ng/mL
[2024-06-10 14:54] LABS: LDL Cholesterol Direct 65 mg/dL
[2024-06-10 15:26] LABS: Hemoglobin A1C 5.3 % (<5.7)
== END 2024-06-10 10:41 | disposition home or self-care (01) ==
LOC: ANHGOSHLAB 10:40
PROVIDERS: PCP Family Medicine; Visit Provider Nurse Practitioner
DX: E78.5 Hyperlipidemia, unspecified (principal); D64.9 Anemia, unspecified; E78.00 Pure hypercholesterolemia, unspecified; R73.03 Prediabetes; E55.9 Vitamin D deficiency, unspecified
CPT/HCPCS: 36415; 80053; 80061; 82306; 83036; 85027

== ENCOUNTER 2024-06-12 14:17 | Outpatient (CLI) | payer MEDICARE, SELFPAY ==
--- NOTE | ~2024-06-12 | US_ITS ---
EXAMINATION:US venous doppler LE LT INDICATION:Lower extremity edema TECHNIQUE: Multiple grayscale, color flow and Doppler images of the left lower extremity deep venous systems were obtained and reviewed. COMPARISON:No prior studies for comparison. FINDINGS: The common femoral, superficial femoral and popliteal veins demonstrate normal respiratory variation, augmentation and compressibility. Color flow is also seen within the posterior tibial, pe roneal, greater saphenous and profunda veins. IMPRESSION: 1: No lower extremity deep venous thrombosis. Reviewed, dictated and finalized at location A. TECHNOLOGY ENGINEERING TECHNICIAN
== END 2024-06-12 14:18 | disposition home or self-care (01) ==
PROVIDERS: PCP Family Medicine; Visit Provider Nurse Practitioner
DX: R60.9 Edema, unspecified (principal)
CPT/HCPCS: 93971

== ENCOUNTER 2024-06-16 11:30 | Emergency (ER) | payer MEDICARE, SELFPAY ==
[2024-06-16 11:38] VITALS: BP 103/61; PULSE 90; RESP 16; TEMP 36.9; O2SAT 96
--- NOTE | 2024-06-16 12:33 | ED.URI ---
HPI - URI/Sore Throat General Chief Complaint: Upper Respiratory Infection Stated Complaint: Cough Time Seen by Provider: 06/16/24 11:47 Source: patient, family () and RN notes reviewed Mode of arrival: wheelchair Limitations: no limitations History of Present Illness HPI Narrative: Patient presents today complaining of 7 day history cough. Two days ago a prescription for azithromycin and benzonatate was called in to her pharmacy by her PCP. She took for 2 days, but did not take a dose today as she felt that it was not working. Also 2 days ago she noticed a sore throat developing as well as diarrhea and nausea. Patient states, ?I feel like I am dehydrated. ? Diarrhea is worse when she starts coughing. She describes the diarrhea as loose. Denies blood or mucus in the stool. Denies abdominal pain, shortness of breath, fever. Patient is able to drink but does not feel up to eating. States that over the last several days she has been feeling weaker and weaker. She took some aspirin once at onset of her cough which did provide some relief, but none since then. Patient arrives in wheelchair, which she normally does not need, but requested due to weakness. Related Data Home Medications ?Medication ?Instructions ?Recorded ?Confirmed ?Last Taken ?Type cholecalciferol (vitamin D3) 25 25 mcg PO DAILY 06/04/19 06/12/24 10/08/23 History mcg (1,000 unit) capsule (Vitamin D3) multivitamin 1 cap PO DAILY 06/04/19 06/12/24 10/08/23 History aspirin 81 mg tablet,delayed 81 mg PO DAILY 08/27/20 06/12/24 10/04/23 History release (Adult Aspirin Regimen) omega-3 fatty acids 1,000 mg 1,000 mg PO DAILY 08/27/20 06/12/24 10/08/23 History capsule (Fish Oil Concentrate) melatonin 10 mg capsule 10 mg PO QHS 01/26/23 06/12/24 10/11/23 21:00 History acetaminophen 650 mg 650 mg PO Q8H PRN Pain 09/15/23 06/12/24 Unknown History tablet,extended release Allergies Allergy/AdvReac Type Severity Reaction Status Date / Time Penicillins Allergy Unknown Skin Verified 06/16/24 11:48 Reaction clindamycin AdvReac Mild MILD Verified 06/16/24 11:48 ITCHING Review of Systems Review of Systems: CONSTITUTIONAL: Denies body aches, fever, chills, or sweats.+ weakness EYES: Denies visual changes, redness, or discharge. ENT: Denies rhinorrhea, congestion, or otalgia.+ sore throat CARDIOVASCULAR: Denies chest pain, palpitations, or edema. RESPIRATORY: Denies dyspnea.+ cough GASTROINTESTINAL: Denies abdominal pain, vomiting.+ nausea, diarrhea GENITOURINARY: Denies dysuria or hematuria. SKIN: Denies rash, itching, or wounds. MUSCULOSKELETAL: Denies back pain, joint pain, or myalgia. NEUROLOGIC: Denies headache, numbness, tingling. PSYCH: Denies depression or anxiety. [facility] Past Medical History Medical History Arthritis of left hip Cataract Surgical History Surgical History Status post total hip replacement, left (~10/12/23) History of carpal tunnel surgery H/O colonoscopy Family History Family History Grandparent Depression Hypertension Family history of coronary artery disease Mother Depression Sibling Depression Father Hypertension Family history of cardiovascular disease Family history of cardiac disorder Malignant neoplasm of prostate Family history of coronary artery disease Other Family history of elevated blood lipids Social History Social History Smoking packs per day: 1 Smoking cigarettes per day: 20.0 Years smoked: 5 Smoking pack-years: 5.00 Smoking status: Former smoker Tobacco type: cigarettes Second hand tobacco smoke exposure: No Additional smoking assessment comments: STATES ONLY SMOKED FOR SHORT TIME IN COLLEGE-DENIES ALL FORMS OF TOBACCO Alcohol intake: never Drinks per week: 7 Alcohol use details: STATES WAS ABOUT 7, NOW ABOUT 2-3 CLASSES WINE/WEEK Substance use: never Substance use type: does not use Do You Feel Safe in your Home?: Yes Lack of Transportation: No Lack of Food: Never True Current Housing: I Have Housing Concerned About Future Housing: No Difficulty Paying Gas/Electric Bills: No Difficulty Paying for Meds: No Currently Unemployed: No Education: Decline to Answer Difficulty w/ Childcare or Family Care: No Living arrangements: with family Spiritual care concerns: No Comments At time of signature, I have reviewed and agree with nursing past medical, surgical, social and family history unless otherwise noted. Please see nursing chart for further information. There is no relevant family history pertinent to the presenting complaint Exam Narrative: GENERAL: Mildly ill-appearing, well-nourished, and in no acute distress. HEAD: Normocephalic, atraumatic. EYES: EOMI. No redness or drainage. Conjunctivae normal. ENT: Mucous membranes pink and moist. Nares clear. No rhinorrhea. TMs normal bilaterally. Throat normal. Uvula midline. NECK: Normal AROM. Supple. No lymphadenopathy. CHEST: No respiratory distress. Clear to auscultation. Harsh cough noted. HEART: Regular rate and rhythm. No murmur appreciated. EXTREMITIES: Normal range of motion. No edema. SKIN: Warm, dry, no rash. Capillary refill normal. Normal skin turgor. NEURO: No focal deficits. Alert and oriented x3. Patient in wheelchair PSYCH: Normal affect. No signs of depression or anxiety. Course Course Level of Care: Express Care Visit Vital Signs Vital signs: Vital Signs Temperature 98.5 F 06/16/24 11:38 Pulse Rate 90 06/16/24 11:38 Respiratory Rate 16 06/16/24 11:38 Blood Pressure 103/61 06/16/24 11:38 Pulse Oximetry 96 06/16/24 11:38 Temperature 98.5 F 06/16/24 11:38 Pulse Rate 90 06/16/24 11:38 Respiratory Rate 16 06/16/24 11:38 Blood Pressure 103/61 06/16/24 11:38 Pulse Oximetry 96 06/16/24 11:38 Reviewed Transfer Transfered to: [facility] Transportation: Other (Private vehicle) Transfer rationale: Generalized weakness Accepting physician: Gennaro MENDIOLA - URI/Sore Throat MDM Narrative Medical decision making narrative: Due to patient's generalized weakness, diarrhea, she will be transferred to the ER for further evaluation and treatment. Differential Diagnosis Differential diagnosis: Likely upper respiratory infection, viral infection, bronchitis and other (Pneumonia, UTI, dehydration, gastroenteritis) Critical Care Time Critical Care Time Critical Care Time: No Discharge Plan Discharge Clinical Impression: Generalized weakness Cough Qualifiers: Cough type: unspecified Qualified Code(s): R05.9 - Cough, unspecified Diarrhea Qualifiers: Diarrhea type: unspecified type Qualified Code(s): R19.7 - Diarrhea, unspecified Patient Disposition: Acute Care Hospital Condition: Stable Patient Language: Turkmen Prescriptions: No Action melatonin 10 mg capsule 10 mg PO QHS cholecalciferol (vitamin D3) [Vitamin D3] 25 mcg (1,000 unit) capsule 25 mcg PO DAILY multivitamin Capsule 1 cap PO DAILY aspirin [Adult Aspirin Regimen] 81 mg tablet,delayed release (DR/EC) 81 mg PO DAILY omega-3 fatty acids [Fish Oil Concentrate] 1,000 mg capsule 1,000 mg PO DAILY acetaminophen 650 mg Tablet Extended Release 650 mg PO Q8H PRN (Reason: Pain) sertraline 100 mg tablet 100 mg PO HS Qty: 90 1RF Rx Instructions: use with 25mg to make 125mg HS PO atorvastatin 20 mg tablet 20 mg PO DAILY Qty: 100 1RF amlodipine 5 mg tablet 5 mg PO DAILY Qty: 100 1RF lisinopril-hydrochlorothiazide 20-12.5 mg tablet 1 tablet PO DAILY Qty: 100 1RF benzonatate 100 mg capsule 100 mg PO TID PRN (Reason: cough) Qty: 20 0RF azithromycin 250 mg tablet 250 mg PO DIRECTED Qty: 6 0RF Rx Instructions: Take 2 tabs on day 1, then 1 tab each day after Follow-up/Referrals: Marianne Begum DO [Primary Care Provider] - Time of Disposition: 12:05
== END 2024-06-16 12:05 | disposition short-term general hospital (02) ==
PROVIDERS: Emergency Provider Nurse Practitioner; PCP Family Medicine
DX: R53.1 Weakness (principal); R05.9 Cough, unspecified; R19.7 Diarrhea, unspecified; Z87.891 Personal history of nicotine dependence; M16.12 Unilateral primary osteoarthritis, left hip; Z96.642 Presence of left artificial hip joint; Z79.82 Long term (current) use of aspirin
CPT/HCPCS: 99212; G0463

== ENCOUNTER 2024-06-16 12:40 | Emergency (ER) | payer MEDICARE, SELFPAY ==
--- NOTE | ~2024-06-16 | XR_ITS ---
CHEST RADIOGRAPH, PA AND LATERAL CLINICAL HISTORY: SOB LUNG SOUNDS . COMPARISON: None available TECHNIQUE: PA and lateral views of the chest. FINDINGS The cardiomediastinal silhouette is unremarkable. The lungs are clear. Visualized osseous structures and soft tissues are unremarkable. IMPRESSION: No focal infiltrate or effusion. Reviewed, dictated and finalized at location A. [facility]
[2024-06-16 12:52] VITALS: BP 136/67; PULSE 100; RESP 16; TEMP 36.4; O2SAT 97
[2024-06-16 15:13] LABS: Influenza A QL RT-PCR Positive (Negative); Influenza B QL RT-PCR Negative (Negative); RSV RNA, RT-PCR Negative (Negative); SARS-CoV-2 RNA PCR Negative (Negative)
--- NOTE | 2024-06-16 15:17 | ED.GENADULT ---
HPI - General Adult General Chief complaint: Upper Respiratory Infection Stated complaint: Sent by weakness,cough,diarrhea Time Seen by Provider: 06/16/24 13:27 History of Present Illness HPI narrative: 83-year-old female presenting to the emergency department for evaluation for persistent cough and congestion. Patient's had similar symptoms. Patient and developed symptoms over week ago. They did have follow-up with their primary care physician and they were started on Z-Gianluca and Tessalon Perles. Patient reports that she took a Z-Gianluca for approximately 2 days and then stopped. Presents emergency department complaining of worsening cough and congestion. Related Data Home Medications ?Medication ?Instructions ?Recorded ?Confirmed ?Last Taken ?Type cholecalciferol (vitamin D3) 25 25 mcg PO DAILY 06/04/19 06/12/24 10/08/23 History mcg (1,000 unit) capsule (Vitamin D3) multivitamin 1 cap PO DAILY 06/04/19 06/12/24 10/08/23 History aspirin 81 mg tablet,delayed 81 mg PO DAILY 08/27/20 06/12/24 10/04/23 History release (Adult Aspirin Regimen) omega-3 fatty acids 1,000 mg 1,000 mg PO DAILY 08/27/20 06/12/24 10/08/23 History capsule (Fish Oil Concentrate) melatonin 10 mg capsule 10 mg PO QHS 01/26/23 06/12/24 10/11/23 21:00 History acetaminophen 650 mg 650 mg PO Q8H PRN Pain 09/15/23 06/12/24 Unknown History tablet,extended release Allergies Allergy/AdvReac Type Severity Reaction Status Date / Time Penicillins Allergy Unknown Skin Verified 06/16/24 12:57 Reaction clindamycin AdvReac Mild MILD Verified 06/16/24 12:57 ITCHING Review of Systems Review of Systems: All systems reviewed & are unremarkable except as noted in HPI and below PMFSH Past Medical History Medical History Arthritis of left hip Cataract Surgical History Surgical History Status post total hip replacement, left (~10/12/23) History of carpal tunnel surgery H/O colonoscopy Family History Family History Grandparent Depression Hypertension Family history of coronary artery disease Mother Depression Sibling Depression Father Hypertension Family history of cardiovascular disease Family history of cardiac disorder Malignant neoplasm of prostate Family history of coronary artery disease Other Family history of elevated blood lipids Social History Social History Smoking packs per day: 1 Smoking cigarettes per day: 20.0 Years smoked: 5 Smoking pack-years: 5.00 Smoking status: Former smoker Tobacco type: cigarettes Second hand tobacco smoke exposure: No Additional smoking assessment comments: ONLY SMOKED FOR SHORT TIME IN COLLEGE-DENIES ALL FORMS OF TOBACCO Alcohol intake: never Drinks per week: 7 Alcohol use details: STATES WAS ABOUT 7, NOW ABOUT 2-3 CLASSES WINE/WEEK Substance use: never Substance use type: does not use Do You Feel Safe in your Home?: Yes Lack of Transportation: No Lack of Food: Never True Current Housing: I Have Housing Concerned About Future Housing: No Difficulty Paying Gas/Electric Bills: No Difficulty Paying for Meds: No Currently Unemployed: No Education: Decline to Answer Difficulty w/ Childcare or Family Care: No Living arrangements: with family Spiritual care concerns: No Exam Narrative: APPEARANCE: Well appearing, no pain, no distress, well-nourished. HEAD: normocephalic, atraumatic. EYES: PERRLA/EOMI, conjunctivae clear. NOSE: Normal no drainage EARS:TMS clear with good light reflex. THROAT: Pharynx clear, no exudate. NECK: Supple. No adenopathy, no masses. RESPIRATORY: Airway patent, respirations nonlabored. Clear to auscultation bilaterally, no rales, rhonchi, wheezing. CARDIOVASCULAR: Regular rate and rhythm without murmurs rubs or gallops. ABDOMINAL: Soft, nontender, nondistended, normal bowel sounds MUSCULOSKELETAL: Moves all extremities. Strength/ROM intact, No edema, No calf tenderness. NEURO: Alert. Cranial nerves II through XII intact. Grossly intact SKIN: Warm, dry. Normal Color Course Vital Signs Vital signs: Vital Signs Temperature 97.6 F 06/16/24 12:52 Pulse Rate 100 06/16/24 12:52 Respiratory Rate 16 06/16/24 12:52 Blood Pressure 136/67 06/16/24 12:52 Pulse Oximetry 97 06/16/24 12:52 Oxygen Delivery Room Air 06/16/24 12:52 Temperature 97.6 F 06/16/24 12:52 Pulse Rate 100 06/16/24 12:52 Respiratory Rate 16 06/16/24 12:52 Blood Pressure 136/67 06/16/24 12:52 Pulse Oximetry 97 06/16/24 15:58 Oxygen Delivery Room Air 06/16/24 15:58 Medical Decision Making MDM Narrative Medical decision making narrative: 83-year-old female presents to the emergency department for evaluation for respiratory symptoms have been going on for greater than 1 week. Patient did test positive for influenza A. Patient was negative for influenza B RSV and for COVID. Patient was advised to stop taking the Z-Gianluca and patient will be started on med doxycycline were concern for bacterial infection due to the duration of her symptoms. Patient was also educated on what the purpose of the Tessalon Perles were for and patient will also be provided albuterol inhaler with spacer. Differential Diagnosis Differential Diagnosis: RSV, influenza a, pneumonia, COVID Vital Signs Vital Signs: Vital Signs Temperature 97.6 F 06/16/24 12:52 Pulse Rate 100 06/16/24 12:52 Respiratory Rate 16 06/16/24 12:52 Blood Pressure 136/67 06/16/24 12:52 Pulse Oximetry 97 06/16/24 12:52 Oxygen Delivery Room Air 06/16/24 12:52 Temperature 97.6 F 06/16/24 12:52 Pulse Rate 100 06/16/24 12:52 Respiratory Rate 16 06/16/24 12:52 Blood Pressure 136/67 06/16/24 12:52 Pulse Oximetry 97 06/16/24 15:58 Oxygen Delivery Room Air 06/16/24 15:58 Lab Data Lab results reviewed: Yes I reviewed the patient's lab results. Labs: Lab Results 06/16/24 Range/Units 14:34 Influenza A (RT-PCR) Positive A (Negative) Influenza B (RT-PCR) Negative (Negative) RSV (RT-PCR) Negative (Negative) SARS-CoV-2 RNA (RT-PCR) Negative (Negative) Imaging Data Radiologist's impression: Impressions Chest X-Ray 06/16/24 15:27 IMPRESSION: No focal infiltrate or effusion. Discharge Plan Discharge Clinical Impression: Influenza A Patient Disposition: Home, Self-Care Condition: Stable Instructions: Antibiotic Form, Influenza (ED), Viral Syndrome (ED) Additional Instructions: Stop taking the azithromycin and switch to doxycycline. Rodney Brandon for cough. Albuterol inhaler as needed for cough and congestion. Have close follow-up with your primary care physician. If you have any worsening symptoms then please call or return to the emergency department. Patient Language: Spanish Prescriptions: New albuterol sulfate 90 mcg/actuation HFA aerosol inhaler 1 puff inhalation QID Qty: 6.7 0RF doxycycline monohydrate 100 mg capsule 100 mg PO BID 7 Days Qty: 14 0RF No Action melatonin 10 mg capsule 10 mg PO QHS cholecalciferol (vitamin D3) [Vitamin D3] 25 mcg (1,000 unit) capsule 25 mcg PO DAILY multivitamin Capsule 1 cap PO DAILY aspirin [Adult Aspirin Regimen] 81 mg tablet,delayed release (DR/EC) 81 mg PO DAILY omega-3 fatty acids [Fish Oil Concentrate] 1,000 mg capsule 1,000 mg PO DAILY acetaminophen 650 mg Tablet Extended Release 650 mg PO Q8H PRN (Reason: Pain) sertraline 100 mg tablet 100 mg PO HS Qty: 90 1RF Rx Instructions: use with 25mg to make 125mg HS PO atorvastatin 20 mg tablet 20 mg PO DAILY Qty: 100 1RF amlodipine 5 mg tablet 5 mg PO DAILY Qty: 100 1RF lisinopril-hydrochlorothiazide 20-12.5 mg tablet 1 tablet PO DAILY Qty: 100 1RF benzonatate 100 mg capsule 100 mg PO TID PRN (Reason: cough) Qty: 20 0RF azithromycin 250 mg tablet 250 mg PO DIRECTED Qty: 6 0RF Rx Instructions: Take 2 tabs on day 1, then 1 tab each day after Follow-up/Referrals: Marianne Begum DO [Primary Care Provider] -
[2024-06-16 15:58] VITALS: O2SAT 97
--- OUTSIDE RECORDS SUMMARY | 2024-06-20 10:40 | XMS_ITS | Patient Health Summary ---
Author Organization [facility] Address [address] [place] [address] Care Team Providers Care Salvage Determiner Name Role Phone Marianne Begum DO Primary Care Provider [phone] Note from [facility],non-owned Affiliates and Associated Physician Practices is amultiple site organization consisting of ambulatory clinics and hospital sitesin [place], [place], [place] and [place]. This disclosure is being madepursuant to the Care Everywhere program and may not contain all information available regarding this patient. Last updated 18.[facility] Allergies * Clindamycin(Itching) * Penicillins(Rash) -Medium Criticality Medications * Be aware that medications may not be up to date on this document. Alwaysverify current medications with the patient. * amLODIPine (Norvasc) 5 MG tablet(Started 06/23/2022) Take 1 (one) tablet by mouth every 12 hours * atorvastatin (Lipitor) 20 MG tablet(Started 06/23/2022) Take 1 (one) tablet by mouth once daily * ciprofloxacin (Cipro) 500 MG tablet(Started 08/18/2022) Take 1 (one) tablet by mouth every 12 hours * lisinopril-hydroCHLOROthiazide (Prinzide; Zestoretic) 20-12.5 MG tablet (Started 06/23/2022) Take 12.5 (twelve and one-half) tablets by mouth once daily * ofloxacin (Ocuflox) 0.3 % ophthalmic solution(Started 08/18/2022) Instill 7 (seven) drops into right ear 3 times daily * sertraline (Zoloft) 100 MG tablet(Started 08/08/2022) Take 1 (one) tablet by mouth once daily * naproxen (Naprosyn) 500 MG tablet(Started 01/10/2022) Take 1 (one) tablet by mouth as needed * Multiple Vitamin (MULTI-VITAMIN DAILY PO) Take 1 tablet by mouth once daily * ASPIRIN 81 PO Take 81 mg by mouth once daily * [place]-3 Fatty Acids (fish oil) 1000 MG capsule Take 1 (one) capsule by mouth once daily * melatonin 10 MG capsule Take 1 (one) capsule by mouth once daily * Vitamin D, Cholecalciferol, 25 MCG (1000 UT) CAPS Take 1 (one) capsule by mouth once daily * HYDROcodone-acetaminophen ([place]) 5-325 MG tablet(Started 11/01/2022) Take 1 (one) tablet by mouth every 6 hours as needed pain Immunizations * INFLUENZA VACCINE(Given 03/02/2018) * INFLUENZA VACCINE, ADJUVANTED, QUADR. (FLUAD QUADRIVALENT; 65Y+) (AIIV4)(Given 02/16/2022, 03/09/2021) * TD (AGE 7-ADULT)(Given 09/27/2018) * Zoster Hzv Vacc Recombinant Inj Im(Given 07/18/2022, 03/21/2022) Social History Tobacco Use Types Packs/Day Years Used Date Smoking Tobacco: Former Cigarettes Q uit: 1965 Smokeless Tobacco: Never Tobacco Cessation:Counseling Given: Not Answered Alcohol Use Standard Drinks/Week Comments Yes 0 (1 standard drink = 0.6 oz pur e alcohol) occassionally Sex and Gender Information Value Date Recorded Sex Assigned at Not on file Gender Identity Not on file Sexual Orientation Not on file Last Filed Vital Signs Vital Sign Reading Time Taken Comments Blood Pressure 145/79 12/08/2022 2:04 PM CDT Pulse 82 12/08/2022 2:04 PM CDT Temperature - - Respiratory Rate - - Oxygen Saturation - - Inhaled Oxygen Concentration - - Weight 64.9 kg (143 lb) 12/08/2022 2:04 PM CDT Height 154.9 cm (5' 1 ) 12/08/2022 2:04 PM CDT Body Mass Index 27.02 12/08/2022 2:04 PM CDT Procedures * NH EAR MICROSCOPY EXAMINATION(Performed 12/08/2022) Performed for Excessive cerumen in right ear canal * AUDIOLOGY/TYMPANOMETRY ORDER(Performed 12/08/2022) * NH EAR MICROSCOPY EXAMINATION(Performed 09/19/2022) Performed for Otorrhea of right ear * NH REMOVE CERUMEN IMPACTED W INSTR RT EAR(Performed 08/22/2022) Performed for Impacted cerumen of right ear * AUDIOLOGY/TYMPANOMETRY ORDER(Performed 08/22/2022) Results * NH EAR MICROSCOPY EXAMINATION (12/08/2022 4:25 PM CDT) Narrative Corby Bauman MD - 12/08/2022 4:25 PM CDT Corby Bauman MD ? 12/08/2022 ??4:25 PM Procedure: ??Microscopic exam of the ear(s) Findings: See main note. Procedure in detail: The binocular operating microscope and and ear speculum were used to exam the ear(s). ??The patient tolerated the procedure well and there was no bleeding. Corby Bauman MD Corby Bauman MD PROCEDURE/MINOR ALONA GICAL ORDERABLES * AUDIOLOGY/TYMPANOMETRY ORDER (12/08/2022 1:16 PM CDT) Narrative Kirit Maldonado, PhD - 12/08/2022 1:51 PM CDT Lucy Lauren is a 82 year old female was seen for an assessment of their hearing. ??The patient reports difficulty hearing. ??There is not a report of dizziness. ?? There is not a report of tinnitus. ??There is a report of otalgia. There is not a report of noise exposure. There is a history of hearing loss in the family. There is not a history of previous ear surgery. 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 ??Speech Genetic Engineer Thresholds is in good agreement with pure tone average(see speech audiometry for details). Findings were reviewed and discussed with Lucy Grace Leonidas following the hearing evaluation. Plan: 1. The risks and benefits of my recommendations, as well as other treatment options were discussed today. 2. I recommend that the patient follow up with their facility, ENT or PCP PRN. Kirit Maldonado, Ph.D., BARON., CCC-A Assembler Chassis Director, Division of Audiology Department of Otolaryngology- Head & Neck Surgery [facility] Kirit Maldonado PhD AUDIOLOGY SERVICES O RDERABLES * NH EAR MICROSCOPY EXAMINATION (09/19/2022 1:23 PM CDT) Narrative Corby Bauman MD - 09/19/2022 1:23 PM CDT Corby Bauman MD ? 09/19/2022 ??1:23 PM Procedure: ??Microscopic exam of the ear(s) Findings: See main note. Procedure in detail: The binocular operating microscope and and ear speculum were used to exam the ear(s). ??The patient tolerated the procedure well and there was no bleeding. Corby Bauman MD Corby Bauman MD PROCEDURE/MINOR ALONA GICAL ORDERABLES * NH REMOVE CERUMEN IMPACTED W INSTR RT EAR (08/22/2022 2:03 PM CDT) Narrative Corby Bauman MD - 08/22/2022 2:03 PM CDT Corby Bauman MD ? 08/22/2022 ??2:10 PM Procedure: ??Binocular Microscopic Removal of Impacted Cerumen AD Indications: Cerumen impaction obscuring the tympanic membrane. ?? Findings: See main note. ?? Procedure Note: After verbal consent was obtained, the binocular operative microscope was brought into position. ??An otologic speculum was inserted into the cartilaginous external auditory canal. ??Cerumen was removed using a combination of cerumen loops, suction, and alligator forceps. ??There was no bleeding Corby Bauman MD Corby Bauman MD PROCEDURE/MINOR ALONA GICAL ORDERABLES * AUDIOLOGY/TYMPANOMETRY ORDER (08/22/2022 12:38 PM CDT) Narrative Kirit Maldonado, PhD - 08/22/2022 1:19 PM CDT Lucy Lauren is a 81 year old female was seen for an assessment of their hearing. 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 ??There is not a report of dizziness. ?? There is not a report of tinnitus. ??There is a report of otalgia. There is not a report of noise exposure. There is a history of hearing loss in the family. There is not a history of previous ear surgery. Results: Puretone air/bone conduction testing revealed a severe sloping to profound mixed hearing loss in the right ear and a normal sloping to moderately severe sensorineural hearing loss in the left ear. ??Speech Genetic Engineer Thresholds is in good agreement with pure tone average(see speech audiometry for details). Findings were reviewed and discussed with Lucy Lauren following the hearing evaluation. Plan: 1. The risks and benefits of my recommendations, as well as other treatment options were discussed today. 2. I recommend that the patient follow up with their facility, ENT or PCP PRN. 3. Retest post treatment. Kirit Maldonado, Ph.D., BARON., CCC-A Assembler Chassis Director, Division of Audiology Department of Otolaryngology- Head & Neck Surgery [facility] Kirit Maldonado PhD AUDIOLOGY SERVICES O CARMEN Care Teams Salvage Determiner Relationship Specialty Start Date End Date Marianne Begum DO [address] [place] [address] PCP - General 08/22/22
--- OUTSIDE RECORDS SUMMARY | 2024-06-20 10:40 | XMS_ITS | Clinical Summary ---
Author Organization [facility] [employer] [facility] Address [address] [place] [address] Care Team Providers Care Hardboard Coating Machine Operator Name Role Phone Marianne Begum DO Primary Care Provider [phone] Source Comments [facility],non-[facility] Affiliates and Associated Physician Practices is amultiple site organization consisting of ambulatory clinics and hospital sitesin [place], [place], [place] and [place]. This disclosure is being madepursuant to the Care Everywhere program and may not contain all information available regarding this patient. Last updated 18.[facility] Allergies Active Allergy Reactions Criticality Noted Date Comments Clindamycin Itching 08/22/2022 Penicillins Rash Medium 08/22/2022 Medications * Be aware that medications may not be up to date on this document. Alwaysverify current medications with the patient. Medication Sig Dispensed Refills Start Date End Date Status amLODIPine (Norvasc) 5 MG tablet Take 1 (one) tablet by mouth every 12 hours 06/23/2022 Active atorvastatin (Lipitor) 20 MG tablet Take 1 (one) tablet by mouth once daily 06/23/2022 Active ciprofloxacin (Cipro) 500 MG tablet Take 1 (one) tablet by mouth every 12 hours 08/18/2022 Active lisinopril-hydroCHLORO thiazide (Prinzide; Zestoretic) 20-12.5 MG tablet Take 12.5 (twelve and one-half) tablets by mouth once daily 06/23/2022 Active ofloxacin (Ocuflox) 0.3 % ophthalmic solution Instill 7 (seven) drops into right ear 3 times daily 08/18/2022 Active sertraline (Zoloft) 100 MG tablet Take 1 (one) tablet by mouth once daily 08/08/2022 Active naproxen (Naprosyn) 500 MG tablet Take 1 (one) tablet by mouth as needed 01/10/2022 Active Multiple Vitamin (MULTI-VITAMIN DAILY PO) Take 1 tablet by mouth once daily Active ASPIRIN 81 PO Take 81 mg by mouth once daily Active [place]-3 Fatty Acids (fish oil) 1000 MG capsule Take 1 (one) capsule by mouth once daily Active melatonin 10 MG capsule Take 1 (one) capsule by mouth once daily Active Vitamin D, Cholecalciferol, 25 MCG (1000 UT) CAPS Take 1 (one) capsule by mouth once daily Active HYDROcodone-acetaminop hen ([place]) 5-325 MG tablet Take 1 (one) tablet by mouth every 6 hours as needed pain 11/01/2022 Active Immunizations Name Administration Dates Next Due INFLUENZA VACCINE 03/02/2018 INFLUENZA VACCINE, ADJUVANTE D, QUADR. (FLUAD QUADRIVALENT; 65Y+) (AIIV4) 02/16/2022,03/09/2021 TD (AGE 7-ADULT) 09/27/2018 Zoster Hzv Vacc Recombinant Inj Im 07/18/2022, Family History Medical History Relation Name Comments Anxiety Disorder Mother Depression Mother Hearing Loss - Unspecified Mother Other - Cardiac Mother Anxiety Disorder Sister Depression Sister Hearing Loss - Unspecified Sister Relation Name Status Comments Mother Sister Social History Tobacco Use Types Packs/Day Years [...] Mass Index 27.02 12/08/2022 2:04 PM CDT Plan of Treatment Health Maintenance Due Date Last Done Comments BONE DENSITY TESTING 1940 PNEUMOCOCCAL VACCINE 50+ (1 of 1 - PCV) 11/22/1991 Respiratory Syncytial Virus (RSV) Vaccine Pt: or over 60 yrs (1 - 1-dose 75+ series) 2016 COVID-19 VACCINE ( season) 2024 02/16/2022, 09/16/2021, 03/09/2021, Additional history exists INFLUENZA VACCINE (#1) 2024 , 03/09/2021, 03/02/2018 DEPRESSION SCREENING 05/29/2024 MEDICARE AWV ? CALENDAR YEAR 2024 DTAP/TDAP/TD VACCINES (2 - Td or Tdap) 09/27/2028 09/27/2018 ZOSTER VACCINE Completed 07/18/2022, 03/21/2022 HEPATITIS B VACCINE Aged Out No longe r eligible based on patient's age to complete this topic HIB VACCINE Aged Out No longer eligi ble based on patient's age to complete this topic HPV VACCINE Aged Out No longer eligi ble based on patient's age to complete this topic MENINGOCOCCAL (Group B) VACCINE Aged Out No longer eligible based on patient's age to complete this topic MENINGOCOCCAL VACCINE Aged Out No mary audie eligible based on patient's age to complete this topic Care Teams Hardboard Coating Machine Operator Relationship Specialty Start Date End Date Kel MarianneDO maura [address] [place] [address] PCP - General 08/22/22
--- OUTSIDE RECORDS SUMMARY | 2024-06-20 10:40 | XMS_ITS | Referral Summary ---
Author Organization [facility] [employer] Address [address] [place] [address] Care Team Providers Care Teacher Of The Handicapped Name Role Phone Marianne Begum DO Primary Care Provider [phone] Source Comments [facility],non-[facility] Affiliates and Associated Physician Practices is amultiple site organization consisting of ambulatory clinics and hospital sitesin [place], [place], [place] and [place]. This disclosure is being madepursuant to the Care Everywhere program and may not contain all information available regarding this patient. Last updated 18.[facility] Allergies Active Allergy Reactions Criticality Noted Date [...] 81 mg by mouth once daily Active [place]-3 Fatty Acids (fish oil) 1000 MG capsule Take 1 (one) capsule by mouth once daily Active melatonin 10 MG capsule Take 1 (one) capsule by mouth once daily Active Vitamin D, Cholecalciferol, 25 MCG (1000 UT) CAPS Take 1 (one) capsule by mouth once daily Active HYDROcodone-acetaminop hen ([place]) 5-325 MG tablet Take 1 (one) tablet by mouth every 6 hours as needed pain 11/01/2022 Active Immunizations Name Administration Dates Next Due INFLUENZA VACCINE 03/02/2018 INFLUENZA VACCINE, ADJUVANTE D, QUADR. (FLUAD QUADRIVALENT; 65Y+) (AIIV4) 02/16/2022,03/09/2021 TD (AGE 7-ADULT) 09/27/2018 Zoster Hzv Vacc Recombinant Inj Im 07/18/2022, Social History Tobacco Use Types Packs/Day Years [...] 12/08/2022 2:04 PM CDT Plan of Treatment Not on file Care Teams Teacher Of The Handicapped Relationship Specialty Start Date End Date Marinane Begum DO [address] [place] [address] PCP - General 08/22/22
--- OUTSIDE RECORDS SUMMARY | 2024-06-20 10:40 | XMS_ITS | Continuity of Care Document ---
Author Organization [facility] Address [address] [place] [address] Phone Care Team Providers Care Director Of Development And Marketing Name Role Phone Ignacio Chen Unavailable Unavailable Procedures Procedure Date Visual Field Examination(s) Office/outpatient Visit, Est Office/outpatient Visit, Est Frames Deluxe TF Plastic Sphcyl [place] To +/-4d .12-2d Roll And/or Burkinan Tax - Medical Post-op Follow-up Visit Post-op Follow-up Visit Remove Cataract, Insert Lens Office/outpatient Visit, Est IOLMaster Office/outpatient Visit, [facility] Advance Directives Directive Yes / No Effective Date File Name No Information Encounters Encounter Description Practice Location Reason(s) For Visit Diagnoses Date Provider Providers Copied on Encounter [facility], [address] [place] [address] [address], [place], [place], [id number], [place] tel:[phone] [facility] No Information 0 April Pierre. [facility] , [address], [place], [address], [place]. tel:[phone] Referring Provider: Tiago [facility] [address], [place], [address]. tel:[phone] Office/outpat ient Visit, Est [facility], [address] [place] [address] [address], [place], [place], [id number], [place] tel:[phone] [facility] No Information May-2 0-201 0 April Pierre. [address] , [address], [place], [address], [place]. tel:[phone] Office/outpat ient Visit, Est [facility], [address], [place], [place], [address], [place] tel:[phone] [facility] No Information May- 8-200 9 April Pierre. [address] [facility] , [address], [place], [address], [place]. tel:[phone] [facility], [address] [place] [address] [address], [place], [place], [address], [place] tel:[phone] [facility] No Information Mar-2 8-200 8 [facility]. [address] [place] [facility], [address], [place], [place], [address], [place]. tel:[phone] Referring Provider: Donald Grace, [facility], [place], [place], [facility]. tel:[phone] sulting Provider: Shante Duarte, [address], [place], [facility]. tel:[phone] [facility], [address] [place] [address] [address], [place], [place], [address], [place] tel:[phone] [facility] No Information Mar-2 0-200 8 Macias OD Donald. [address] , [address], [place], [address], [place]. tel:[phone] Referring Provider: Ignacio Grace, [address], [place], [address]. tel:[phone] [facility], [address] [place] [address] [address], [place], [place], [address], [place] tel:[phone] [facility] No Information Mar-0 5-200 8 Brant Corbinl. [facility] Corporate [address], [place], [place], [facility], . tel:[phone] Referring Provider: Donald Grace, [address] [place], [place] [address]ate [address], [place], [facility]. tel:[phone] [facility], [address] [place] [address] [address], [place], [place], [address], tel:[phone] [facility] No Information Mar-0 4-200 8 April Edthien. [address] [place], [place] [address]ate Center , [address], [place], [place], [facility], [place]. tel:[phone] Referring Provider: Donald Grace, [address] [place], [place] [address]ate [address], [place], [facility]. tel:[phone] Office/outpat ient Visit, [facility], [address] [place] [address] [address], [place], [place], [address], [place] tel:[phone] [facility] No Information Dec-2 6-200 7 April Pierre. [address] [place], [place] [address]ate Center , [address], [place], [place], [facility], [place]. tel:[phone] Referring Provider: Ignacio Grace, [address] [place], [place] [address]ate [address], [place], [place], [facility]. tel:[phone] Office/outpat ient Visit, [facility], [address] [place] [address] [address], [place], [place], [address], [place] tel:[phone] [facility] No Information Vik-2 0-200 7 April Pierre. [address] [place], [place] [address]ate Center , [address], [place], [place], [facility], [place]. tel:[phone] Referring Provider: Donald Grace, [address] [place], [place] [address], [place], [place], [facility]. tel:[phone] Family History Family Member Type Diagnosis Age At Onset No Information Payers Payer name Insurance type Covered republican ID Authoriza tion(s) No Information Social History Type Description Quantity Date Captured Comments Sex Female Smoking Status No Information Chief Complaint And Reason For Visit No Information Reason For Referral Reason For Referral No Information History Of Present Illness Encounter Date Complaint History Of Prese nt Illness No Information Functional Status Date Functional Assessmen t No Information Instructions Date Instruction Additional Infor mation No Information Assessments Type Assessment Date No Information Patient Care Teams Name Effective Dates (start - stop) Status Members No Information
== END 2024-06-16 16:02 | disposition home or self-care (01) ==
PROVIDERS: Emergency Provider Emergency Medicine; PCP Family Medicine
DX: J10.1 Influenza due to other identified influenza virus with other respiratory manifestations (principal); Z79.82 Long term (current) use of aspirin; Z96.642 Presence of left artificial hip joint; Z87.891 Personal history of nicotine dependence; Z20.822 Contact with and (suspected) exposure to COVID-19
CPT/HCPCS: 71046; 87637; 94664; 99283

== ENCOUNTER 2024-10-07 11:56 | Outpatient (CLI) | payer MEDICARE, SELFPAY ==
--- OUTSIDE RECORDS SUMMARY | 2024-10-07 12:01 | XMS_ITS | Clinical Summary ---
Author Organization [facility] [employer] Address [address] [place] [address] Care Team Providers Care Physics Instructor Name Role Phone Marianne Begum DO Primary Care Provider [phone] Source Comments [facility],non-select specialty hospital Affiliates and Associated Physician Practices is amultiple site organization consisting of ambulatory clinics and hospital sitesin [place], [place], [place] and [place]. This disclosure is being madepursuant to the Care Everywhere program and may not contain all information available regarding this patient. Last updated 18.[facility] [employer] Allergies Active Allergy Reactions Criticality Noted Date Comments Clindamycin Itching 08/22/2022 Penicillins Rash Medium 08/22/2022 Medications * Be aware that medications may not be up to date on this document. Alwaysverify current medications with the patient. amLODIPine (Norvasc) 5 MG tablet Take 1 (one) tablet by mouth every 12 hours 06/23/2022 Active atorvastatin (Lipitor) 20 MG tablet Take 1 (one) tablet by mouth once daily 06/23/2022 Active ciprofloxacin (Cipro) 500 MG tablet Take 1 (one) tablet by mouth every 12 hours 08/18/2022 Active lisinopril-hydr oCHLOROthiazide (Prinzide; Zestoretic) 20-12.5 MG tablet Take 12.5 [...] 81 mg by mouth once daily Active Chelsea-3 Fatty Acids (fish oil) 1000 MG capsule Take 1 (one) capsule by mouth once daily Active melatonin 10 MG capsule Take 1 (one) capsule by mouth once daily Active Vitamin D, Cholecalciferol , 25 MCG (1000 UT) CAPS Take 1 (one) capsule by mouth once daily Active HYDROcodone-aretha taminophen ([place]) 5-325 MG tablet Take 1 (one) tablet by mouth every 6 hours as needed pain 11/01/2022 Active Immunizations Immunization Administration Dates Next Due INFLUENZA VACCINE 03/02/2018 [...] = 0.6 oz pur e alcohol) occassionally Comments Unknown Sex and Gender Information Value Date Recorded Sex Assigned at Not on file 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 Gender Identity Not on file Sexual Orientation [...] 2024 02/16/2022, 09/16/2021, 03/09/2021, Additional history exists DEPRESSION SCREENING 05/29/2024 MEDICARE AWV CALENDAR YEAR 2024 INFLUENZA VACCINE (Season Ended) 2025 02/16/2022, 03/09/2021, 03/02/2018 DTAP/TDAP/TD VACCINES (2 - Td or Tdap) [...] complete this topic MENINGOCOCCAL (Group B) VACCINE SHARED DECISION-MAKING Aged Out No longer eligible based on patient's age to complete this topic MENINGOCOCCAL GROUPS A/C/Y/W VACCINE Aged Out No longer eligible based on patient's age to complete this topic Insurance [facility] MANAGED MEDICARE ADV [facility] MANAGED MEDICARE [place]V [place] [id number] Care Teams Physics Instructor Relationship Specialty Start Date End Date Marianne Begum DO [address] [place] [address] PCP - General 08/22/22
--- OUTSIDE RECORDS SUMMARY | 2024-10-07 12:01 | XMS_ITS | Clinical Summary ---
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 Gender Identity Not on file Sexual Orientation Not on file Plan of Treatment Upcoming Encounters Date Type Department Care Team (Late st Contact Info) Description 10/09/2024 3:00 PM CDT Office Visit [facility] Oncology and Hematology - [address] [facility] [address] [address] Marco Dennis MD [address] [facility] [address] [place] [address] Health Maintenance Due Date Last Done Comments DTAP/TDAP/TD VACCINES (1 - Tdap) 1960 PNEUMOCOCCAL VACCINE 50+ YEARS (1 of 1 - PCV) 11/21/18 92 ZOSTER VACCINE (1 of 2) 11/22/1991 OSTEOPOROSIS SCREENING 2006 RSV VACCINE (60+ or ) (1 - 1-dose 75+ series) 2016 INFLUENZA VACCINE (#1) 2023 [place] Prev entative Visit/Annual Wellness Visit 05/29/2024 Insurance [facility] [id number]
[2024-10-07 15:51] LABS: Alanine Aminotransferase 22 U/L (6-35); Albumin Level 4.5 g/dL (3.5-5.1); Alkaline Phosphatase 80 U/L (38-126); Anion Gap 8 mmol/L (4-12); Aspartate Amino Transferase 48 U/L (14-36); Bilirubin,Total 0.9 mg/dL (0.2-1.3); Blood Urea Nitrogen 23 mg/dL (7-17); Calcium 10.2 mg/dL (8.4-10.2); Carbon Dioxide 28 mmol/L (22-30); Chloride 103 mmol/L (98-107); Cholesterol 180 mg/dL (0-200); Estimated Glomerular Filt Rate > 60; Glucose 91 mg/dL (65-110); HDL Direct 73 mg/dL; Potassium 3.9 mmol/L (3.4-5.0); Sodium 139 mmol/L (137-145); Triglycerides 78 mg/dL (<150)
[2024-10-07 16:02] LABS: LDL Cholesterol Direct 75 mg/dL
[2024-10-07 20:05] LABS: Free T4 Free Thyroxine 1.13 ng/dL (0.78-2.19); Vitamin D 25 Hydroxy 62.2 ng/mL
[2024-10-07 22:14] LABS: Hemoglobin A1C 5.3 % (<5.7)
== END 2024-10-07 11:57 | disposition home or self-care (01) ==
PROVIDERS: PCP Family Medicine; Visit Provider Nurse Practitioner
DX: E78.5 Hyperlipidemia, unspecified (principal); E78.00 Pure hypercholesterolemia, unspecified; R73.03 Prediabetes; E03.9 Hypothyroidism, unspecified; E55.9 Vitamin D deficiency, unspecified
CPT/HCPCS: 36415; 80053; 80061; 82306; 83036; 84439; 84443

== ENCOUNTER 2024-10-09 15:57 | Outpatient (CLI) | payer MEDICARE, SELFPAY ==
[2024-10-09 16:11] LABS: Basophils Percent Auto 0.2 % (0.2-1.2); Hematocrit 36.2 % (37.0-47.0); Hemoglobin 12.1 g/dL (12.0-15.0); Immature Granulocyte Absolute 0.06 K/mm3 (0.00-0.031); Immature Granulocyte Percent A 1.4 % (0-0.5); Lymphocytes Absolute Auto 1.91 K/mm3 (0.9-3.2); Lymphocytes Percent Auto 45.8 % (18.3-44.2); Mean Corpuscular HGB Conc 33.4 g/dl (32-36); Mean Corpuscular Hemoglobin 33.5 pg (26-34); Mean Corpuscular Volume 100.3 fl (80-100); Mean Platelet Volume 11.2 fl (7.4-10.4); Monocytes Absolute Auto 0.5 K/mm3 (0.1-0.6); Monocytes Percent Auto 11.3 % (2.6-8.5); Neutrophils Absolute Auto 1.7 K/mm3 (1.3-6.7); Neutrophils Percent Auto 40.3 % (45.5-73.1); Platelet Count Result 198 k/mm3 (150-375); Red Blood Count 3.61 M/mm3 (4.2-5.4); Red Cell Distribution Width 12.2 % (11.5-14.5); White Blood Count 4.2 K/mm3 (4.5-10.0)
[2024-10-09 16:55] LABS: Alanine Aminotransferase 24 U/L (6-35); Albumin Level 4.9 g/dL (3.5-5.1); Alkaline Phosphatase 88 U/L (38-126); Anion Gap 10 mmol/L (4-12); Aspartate Amino Transferase 55 U/L (14-36); Bilirubin,Total 0.8 mg/dL (0.2-1.3); Blood Urea Nitrogen 28 mg/dL (7-17); Calcium 10.5 mg/dL (8.4-10.2); Carbon Dioxide 27 mmol/L (22-30); Chloride 103 mmol/L (98-107); Estimated Glomerular Filt Rate > 60; Glucose 98 mg/dL (65-110); Sodium 140 mmol/L (137-145)
[2024-10-09 17:05] LABS: Iron 89 ug/dL (37-170)
[2024-10-09 17:23] LABS: Percent Iron Saturation 26 % (20-50)
[2024-10-09 18:07] LABS: Folic Acid > 20.0 ng/mL (2.76->20)
[2024-10-13 06:19] LABS: Methylmalonic Acid 240 nmol/L (85-423)
[2024-10-14 13:48] LABS: Soluble Transferrin Receptor 1.66 mg/L (0.76-1.76)
== END 2024-10-09 15:58 | disposition home or self-care (01) ==
LOC: ANHLAB 15:57
PROVIDERS: PCP Family Medicine; Visit Provider Internal Medicine Hematology & Oncology
DX: D72.819 Decreased white blood cell count, unspecified (principal); D64.9 Anemia, unspecified
CPT/HCPCS: 36415; 80053; 82607; 82728; 82746; 83540; 83550; 83921; 84238; 85025; 86038; 86039

== ENCOUNTER 2024-11-05 09:01 | Outpatient (CLI) | payer MEDICARE, SELFPAY ==
--- NOTE | ~2024-11-05 | US_ITS ---
Abdominal Sonogram: Real-time sonographic imaging of the abdomen was performed. Clinical History: Leukopenia Findings: The liver appears normal with no evidence of mass lesion or bile duct dilatation. Main por licha vein demonstrates normal direction of flow. The spleen is normal in size without evidence of foca l lesion. The gallbladder is well distended, and appears normal with no evidence of gallstone or wal l thickening. The common bile duct measures 3 mm. The visualized pancreas, aorta, and IVC are unrema rkable. The right kidney measures 9.8 cm in length and the left kidney measures 9.8 cm. There is no hydronephrosis or renal calculus. Bilaterally renal cysts are present. Impression: No significant abnormality seen. Reviewed, dictated and finalized at [facility]. Impression: No significant abnormality seen.
== END 2024-11-05 09:02 | disposition home or self-care (01) ==
LOC: MICIMG 09:02
PROVIDERS: PCP Family Medicine; Visit Provider Internal Medicine Hematology & Oncology
DX: D72.819 Decreased white blood cell count, unspecified (principal)
CPT/HCPCS: 76700

== ENCOUNTER 2024-12-12 09:32 | Outpatient (CLI) | payer MEDICARE, SELFPAY ==
--- OUTSIDE RECORDS SUMMARY | 2024-12-12 09:38 | XMS_ITS | Encounter Summary ---
Author Organization [facility] Address [address] [place] [address] Care Team Providers Care Net Developer Contract Name Role Phone Unavailable Primary Care Provider Unavailabl e Encounter Details Date Type Department Care Team (Late st Contact Info) Description 12/11/2024 External Device Data [facility] ABSTRACTION Provider, Abstract NO ADDRESS ON FILE Social History Tobacco Use Types Packs/Day Years Used Date Smoking Tobacco: Never Smokeless Tobacco: Never Alcohol Use Standard Drinks/Week Comments Never 0 (1 standard drink = 0.6 oz pur e alcohol) Comments Unknown Sex and Gender Information Value Date Recorded Sex Assigned at Not on file 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
--- OUTSIDE RECORDS SUMMARY | 2024-12-12 09:38 | XMS_ITS | Clinical Summary ---
Author Organization [facility] Charlette [place]ve[place] Address [address] [place] [address] Care Team Providers Care Principal Account Clerk Name Role Phone Unavailable Primary Care Provider Unavailabl e Allergies Active Allergy Reactions Criticality Noted Date Comments Clindamycin Itching Low 08/22/2022 Penicillins Rash Medium 08/22/2022 Medications atorvastatin (LIPITOR) 20 mg tablet Take 20 mg by mouth daily. 06/23/2022 Active amLODIPine (NORVASC) 5 mg tablet Take 5 mg by mouth 2 times daily. 06/23/2022 Active lisinopril-hydr oCHLOROthiazide (ZESTORETIC) 20-12.5 mg tablet Take 12.5 Tablets by mouth daily. 06/23/2022 Active sertraline (ZOLOFT) 100 mg tablet Take 100 mg by mouth daily. 08/08/2022 Active melatonin 10 mg Capsule Take 10 mg by mouth daily. Active cholecalciferol , Vitamin D3, (VITAMIN D3) 25 mcg (1,000 unit) Capsule Take 0.025 mg by mouth daily. Active aspirin (CLARENCE CHEWABLE) 81 mg Tablet, Chewable Take 81 mg by mouth daily. Active multivitamin (MULTIPLE VITAMIN ORAL) Take 1 Tablet by mouth daily. Active Active Problems No known active problems Encounters Date Type Department Care Team Description 12/11/2024 External Device Data [facility] ABSTRACTION Provider, Abstract 12/11/2024 External Device Data [facility] ABSTRACTION Provider, Abstract 12/10/2024 External Device Data [facility] ABSTRACTION Provider, Abstract 11/13/2024 External Device Data [facility] ABSTRACTION Provider, Abstract 11/12/2024 External Device Data [facility] ABSTRACTION Provider, Abstract 11/07/2024 4:30 PM CDT Telephone Check Up [facility] Oncology and Hematology - [address] [place] [address] Marco Dennis MD Chronic anemia (Primary Dx) 11/06/2024 Orders Only [facility] Oncology and Hematology [address] [place] [address] Marco Dennis MD 10/17/2024 External Device Data [facility] ABSTRACTION Provider, Abstract 10/17/2024 External Device Data [facility] ABSTRACTION Provider, Abstract 10/17/2024 Orders Only [facility] Oncology and Hematology [address] [place] [address] Marco Dennis MD 10/17/2024 External Device Data [facility] ABSTRACTION Provider, Abstract 10/16/2024 External Device Data [facility] ABSTRACTION Provider, Abstract 10/16/2024 External Device Data [facility] ABSTRACTION Provider, Abstract 10/15/2024 External Device Data [facility] ABSTRACTION Provider, Abstract 10/11/2024 Orders Only [facility] Oncology and Hematology - [address] [place] [address] Marco Dennis MD 10/10/2024 Orders Only [facility] Oncology and Hematology [address] [place] [address] Marco Dennis MD 10/09/2024 3:00 PM CDT Office Visit [facility] Oncology and Hematology - [address] [place] [address] Marco Dennis MD Chronic anemia (Primary Dx); Leukopenia, unspecified type 10/09/2024 Abstract [facility] Oncology and Hematology [facility] [address] [place] [address] Marco Dennis MD from Last 3 Months Family History Medical History Relation Name Comments No Known Problems Child Heart Disease Father Prostate Cancer Father No Known Problems Mother No Known Problems Sister Relation Name Status Comments Child Alive Father Mother Sister Alive Social History Tobacco Use Types Packs/Day Years Used Date Smoking Tobacco: Never Smokeless Tobacco: Never Alcohol Use Standard Drinks/Week Comments Never 0 (1 standard drink = 0.6 oz pur e alcohol) Comments Unknown Sex and Gender Information Value Date Recorded Sex Assigned at Not on file 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 Gender Identity Not on file Sexual Orientation Not on file Last Filed Vital Signs Vital Sign Reading Time Taken Comments Blood Pressure 115/65 10/09/2024 3:03 PM CDT Pulse 79 10/09/2024 3:03 PM CDT Temperature 36.4 C (97.5 F) 10/09/2024 3:03 PM CDT Respiratory Rate 15 10/09/2024 3:03 PM CDT Oxygen Saturation 96% 10/09/2024 3:03 PM CDT Inhaled Oxygen Concentration - - Weight 56.2 kg (123 lb 12.8 oz) 10/09/2024 3:03 PM CDT Height - - Body Mass Index - - Plan of Treatment Upcoming Encounters Date Type Department Care Team (Late st Contact Info) Description 03/13/2025 11:45 AM CDT Office Visit [facility] Oncology and Hematology - [address] [facility] [address] [place] [address] Marco Dennis MD [address] [facility] [address] [place] [address] Health Maintenance Due Date Last Done Comments DTAP/TDAP/TD VACCINES (1 - Tdap) 1960 PNEUMOCOCCAL VACCINE 50+ YEA RS (1 of 1 - PCV) 11/22/1991 OSTEOPOROSIS SCREENING 2006 RSV VACCINE (60+ or ) (1 - 1-dose 75+ series) 2016 INFLUENZA VACCINE (#1) 2024 02/16/2022, 2020 ZOSTER VACCINE Completed 07/18/2022, 03/21/2022 Procedures Procedure Name Priority Date/Time Associated Diagnosis Comments US ABDOMEN COMPLETE Routine 11/05/2024 9 :59 AM CDT TRANSFERRIN RECEPTOR TFR SOLUBLE Routine 10/09/2024 4:15 PM CDT CBC WITH DIFFERENTIAL Routine 10/09/2024 3:03 PM CDT COMPREHENSIVE METABOLIC PANEL Routine 10/09/2024 2:52 PM CDT from Last 3 Months Results * US ABDOMEN COMPLETE (11/05/2024 9:59 AM CDT) Anatomical Region Laterality Modality Abdomen Ultrasound us Marco Dennis MD US ORDERABLES Final Result * TRANSFERRIN RECEPTOR TFR SOLUBLE (10/09/2024 4:15 PM CDT) Blood us Marco Dennis MD CHEMISTRY ORDERABLES Final Resu lt * CBC WITH DIFFERENTIAL (10/09/2024 3:03 PM CDT) Blood us Marco Dennis MD HEMATOLOGY ORDERABLES Final Res ult * COMPREHENSIVE METABOLIC PANEL (10/09/2024 2:52 PM CDT) Blood us Marco Dennis MD CHEMISTRY ORDERABLES Final Resu lt from Last 3 Months Insurance [facility] [id number]
--- OUTSIDE RECORDS SUMMARY | 2024-12-12 09:38 | XMS_ITS | Clinical Summary ---
Author Organization [facility] [employer] Address [address] [place] [address] Care Team Providers Care Crankshaft Balancer Name Role Phone Marianne Begum DO Primary Care Provider [phone] Source Comments [facility],non-[facility] Affiliates and Associated Physician Practices is amultiple site organization consisting of ambulatory clinics and hospital sitesin [place], [place], [place] and [place]. This disclosure is being madepursuant to the Care Everywhere program and may not contain all information available regarding this patient. 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 Gender Identity Not on file Sexual Orientation Not on file Last Filed Vital Signs Vital Sign Reading Time Taken Comments Blood Pressure 145/79 12/08/2022 2:04 PM CDT Pulse 82 12/08/2022 2:04 PM CDT Temperature - - Respiratory Rate - - Oxygen Saturation - - Inhaled Oxygen Concentration - - Weight 64.9 kg (143 lb) 12/08/2022 2:04 PM CDT Height 154.9 cm (5' 1) 12/08/2022 2:04 PM CDT Body Mass Index [...] MEDICARE AWV CALENDAR YEAR 2024 INFLUENZA VACCINE (#1) 2025 , 03/09/2021, 03/02/2018 DTAP/TDAP/TD VACCINES (2 - Td [...] patient's age to complete this topic Insurance [facility] MANAGED MEDICARE ADV [facility] MANAGED MEDICARE AD[place] [id number] Care Teams Crankshaft Balancer Relationship Specialty Start Date End Date Marianne Begum DO [address] [place] [address] PCP - General 08/22/22
--- OUTSIDE RECORDS SUMMARY | 2024-12-12 09:38 | XMS_ITS | Continuity of Care Document ---
Author Organization [facility] Address [address] [place] [address] Phone Care Team Providers Care Stratigrapher Name Role Phone Ignacio Chen Unavailable Unavailable Procedures Procedure Date Visual Field Examination(s) Office/outpatient Visit, Est Office/outpatient Visit, Est Frames Deluxe TF Plastic Sphcyl [place] To +/-4d .12-2d Roll And/or Belarusian Tax - Medical Post-op Follow-up Visit Post-op Follow-up Visit Remove Cataract, Insert Lens Office/outpatient Visit, Est IOLMaster Office/outpatient Visit, [facility] Advance Directives Directive Yes / No Effective Date File Name No Information Encounters Encounter Description Practice Location Reason(s) For Visit Diagnoses Date Provider Providers Copied on Encounter [facility], [address] [place] [address] [address], [place], [place], [id number], [place] tel:[phone] [facility] No Information 0 April Pierre. [facility] [address], [place], [address], [place]. tel:[phone] Referring Provider: Tiago [facility] [address], [place], [address]. tel:[phone] Office/outpat ient Visit, Est [facility], [address] [place] [address] [address], [place], [place], [id number], [place] tel:[phone] [facility] No Information May-2 0-201 0 April Pierre. [address], [place], [address], [place]. tel:[phone] Office/outpat ient Visit, Est [facility], [address], [place], [place], [id number], [place] tel:[phone] [facility] No Information May- 8-200 9 April Pierre. [address] [facility] [address] , [address], [place], [address], [place]. tel:[phone] [facility], [address] [place] [address] [address], [place], [place], [id number], [place] tel:[phone] [facility] No Information Mar-2 8-200 8 [facility]. [address] [facility], [address], [place], [place], [id number], [place]. tel:[phone] Referring Provider: Donald Grace, [facility], [place], [place], [facility]. tel:[phone] sulting Provider: Shante Duarte, [address] [place], [place], [facility]. tel:[phone] [facility], [address] [place] [address] [address], [place], [place], [id number], [place] tel:[phone] [facility] No Information Mar-2 0-200 8 Macias OD Donald. [address] , [address], [place], [address], [place]. tel:[phone] Referring Provider: Ignacio Grace, [address], [place], [address]. tel:[phone] [facility], [address] [place] [address] [address], [place], [place], [id number], [place] tel:[phone] [facility] No Information Mar-0 5-200 8 Brant Corbinl. [facility][note 3] [address], [place], [place], [facility], . tel:[phone] Referring Provider: Donald Grace, [address] [place], [place] [address], [place], [facility]. tel:[phone] [facility], [address] [place] [address] [address], [place], [place], [id number], tel:[phone] [facility] No Information Mar-0 4-200 8 April Edthien. [address] [place], [place] [address] , [address], [place], [facility], [place]. tel:[phone] Referring Provider: Donald Grace, [address] [place], [place] [address], [place], [facility]. tel:[phone] Office/outpat ient Visit, [facility], [address] [place] [address] [address], [place], [place], [id number], [place] tel:[phone] [facility] No Information Dec-2 6-200 7 April Pierre. [address] [place], [place] [address] , [address], [place], [facility], [place]. tel:[phone] Referring Provider: Ignacio Grace, [address] [place], [place] [address], [place], [facility]. tel:[phone] Office/outpat ient Visit, [facility], [address] [place] [address] [address], [place], [place], [id number], [place] tel:[phone] [facility] No Information Vik-2 0-200 7 April Pierre. [address] [place], [place] [address] , [address], [place], [facility], [place]. tel:[phone] Referring Provider: Donald Grace, [address] [place], [place] [address], [place], [facility]. tel:[phone] Family History Family Member Type Diagnosis Age At Onset No Information Payers Payer name Insurance type Covered green party ID Authoriza tion(s) No Information Social History [...]
--- OUTSIDE RECORDS SUMMARY | 2024-12-12 09:38 | XMS_ITS | Encounter Summary ---
Author Organization [facility] Address [address] [place] [address] Care Team Providers Care House Worker General Name Role Phone Unavailable Primary Care Provider Unavailabl e Encounter Details Date Type Department Care Team (Late st Contact Info) Description 12/10/2024 External Device Data [facility] ABSTRACTION Provider, Abstract NO ADDRESS ON FILE Social History Tobacco Use Types Packs/Day Years Used Date Smoking Tobacco: Never Smokeless Tobacco: Never Alcohol Use Standard Drinks/Week Comments Never 0 (1 standard drink = 0.6 oz pur e alcohol) Comments Unknown Sex and Gender Information Value Date Recorded Sex Assigned at Not on file 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
--- OUTSIDE RECORDS SUMMARY | 2024-12-12 09:38 | XMS_ITS | Encounter Summary ---
Author Organization [facility] Address 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
[2024-12-12 10:19] LABS: Hematocrit 35.2 % (37.0-47.0); Hemoglobin 11.4 g/dL (12.0-15.0); Mean Corpuscular HGB Conc 32.4 g/dl (32-36); Mean Corpuscular Hemoglobin 32.2 pg (26-34); Mean Corpuscular Volume 99.4 fl (80-100); Platelet Count Result 177 k/mm3 (150-375); Red Blood Count 3.54 M/mm3 (4.2-5.4); White Blood Count 3.3 K/mm3 (4.5-10.0)
[2024-12-12 10:33] LABS: Alanine Aminotransferase 17 U/L (6-35); Albumin Level 4.5 g/dL (3.5-5.1); Alkaline Phosphatase 58 U/L (38-126); Anion Gap 8 mmol/L (4-12); Aspartate Amino Transferase 34 U/L (14-36); Bilirubin,Total 0.7 mg/dL (0.2-1.3); Blood Urea Nitrogen 26 mg/dL (7-17); Calcium 10.2 mg/dL (8.4-10.2); Carbon Dioxide 26 mmol/L (22-30); Chloride 107 mmol/L (98-107); Cholesterol 166 mg/dL (0-200); Estimated Glomerular Filt Rate > 60; Glucose 100 mg/dL (65-110); HDL Direct 77 mg/dL; Potassium 4.5 mmol/L (3.4-5.0); Sodium 141 mmol/L (137-145); Total Protein 7.4 g/dL (6.3-8.2); Triglycerides 88 mg/dL (<150)
[2024-12-12 10:49] LABS: Free T4 Free Thyroxine 1.01 ng/dL (0.78-2.19)
[2024-12-12 11:09] LABS: Thyroid Stimulating Hormone 4.810 uIU/mL (0.465-4.680)
[2024-12-12 11:37] LABS: Hemoglobin A1C 5.6 % (<5.7)
== END 2024-12-12 09:33 | disposition home or self-care (01) ==
LOC: ANHGOSHLAB 09:33
PROVIDERS: PCP Family Medicine; Visit Provider Nurse Practitioner
DX: E03.9 Hypothyroidism, unspecified (principal); E55.9 Vitamin D deficiency, unspecified; E78.5 Hyperlipidemia, unspecified; R73.03 Prediabetes; E78.00 Pure hypercholesterolemia, unspecified; I10 Essential (primary) hypertension
CPT/HCPCS: 36415; 80053; 80061; 82306; 83036; 84439; 84443; 85027

== ENCOUNTER 2024-12-16 10:54 | Outpatient (CLI) | payer MEDICARE, SELFPAY ==
--- NOTE | ~2024-12-16 | US_ITS ---
US abdomen limited INDICATION: Elevated liver function tests PROCEDURE: Realtime right upper abdominal ultrasound. COMPARISON: No prior studies for comparison. FINDINGS: The pancreas is normal without focal mass or pancreatic ductal dilation. Liver echotexture is normal without focal mass or intrahepatic biliary dilatation. There is normal directional flow i n the portal vein. The gallbladder is normal without stones, gallbladder wall thickening or pericholecystic fluid. Comm on bile duct measures 3 mm. No sonographic Woody's sign. IMPRESSION: 1: Normal limited abdominal ultrasound. Reviewed, dictated and finalized at location A.
== END 2024-12-16 10:55 | disposition home or self-care (01) ==
LOC: GOSHIMG 10:55
PROVIDERS: PCP Nurse Practitioner; Visit Provider Nurse Practitioner
DX: R74.8 Abnormal levels of other serum enzymes (principal)
CPT/HCPCS: 76705

== ENCOUNTER 2025-02-27 10:38 | Outpatient (CLI) | payer MEDICARE, SELFPAY ==
[2025-02-27 10:50] LABS: Hematocrit 35.7 % (37.0-47.0); Hemoglobin 11.8 g/dL (12.0-15.0); Immature Granulocyte Percent A 0.8 % (0-0.5); Lymphocytes Absolute Auto 1.93 K/mm3 (0.9-3.2); Mean Corpuscular HGB Conc 33.1 g/dl (32-36); Mean Corpuscular Hemoglobin 33.6 pg (26-34); Mean Corpuscular Volume 101.7 fl (80-100); Nucleated Red Blood Cells Absolute Auto 0.000 K/mm3 (0.0-0.012); Nucleated Red Blood Cells Perc 0.0 % (0.0-0.2); Platelet Count Result 174 k/mm3 (150-375); Red Blood Count 3.51 M/mm3 (4.2-5.4); White Blood Count 3.9 K/mm3 (4.5-10.0)
--- OUTSIDE RECORDS SUMMARY | 2025-02-27 11:11 | XMS_ITS | Clinical Summary ---
Author Organization [facility] Address [address] [facility] [place] [address] Care Team Providers Care Tetryl Nitrator Operator Name Role Phone Marianne Begum DO Primary Care Provider [phone] Source Comments [facility],non-research medical center Affiliates and Associated Physician Practices is amultiple site organization consisting of ambulatory clinics and hospital sitesin [place], [place], [place] and [place]. This disclosure is being madepursuant to the Care Everywhere program and may not contain all information available regarding this patient. 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 Gender Identity Not on file Sexual Orientation [...] yrs (1 - 1-dose 75+ series) 2016 DEPRESSION SCREENING 05/29/2024 MEDICARE AWV CALENDAR YEAR 2024 COVID-19 VACCINE ( season) 2025 02/16/2022, 09/16/2021, 03/09/2021, Additional history exists INFLUENZA VACCINE (#1) 2025 , 03/09/2021, 03/02/2018 [...] patient's age to complete this topic Insurance [facility] MANAGED MEDICARE ADV [facility] MANAGED MEDICARE [place] [id number] Care Teams Tetryl Nitrator Operator Relationship Specialty Start Date End Date Marianne Begum DO [address] [place] [address] PCP - General 08/22/22
--- OUTSIDE RECORDS SUMMARY | 2025-02-27 11:11 | XMS_ITS | Clinical Summary ---
Author Organization [facility] Charlette Austinverenice Address [address] [place] [address] Care Team Providers Care Digital Sales Representative Name Role Phone Unavailable Primary Care Provider [...] Encounters Date Type Department Care Team Description 01/28/2025 External Device Data [facility] ABSTRACTION Provider, Abstract 01/14/2025 External Device Data [facility] ABSTRACTION Provider, Abstract 12/11/2024 External Device Data [facility] ABSTRACTION Provider, Abstract 12/11/2024 External Device Data [facility] ABSTRACTION Provider, Abstract 12/11/2024 External Device Data [facility] ABSTRACTION Provider, Abstract 12/10/2024 External Device Data ST[facility] ABSTRACTION Provider, Abstract from Last 3 Months Family History Medical [...] on file 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 Gender Identity Not on file Sexual Orientation [...] 11:45 AM CDT Office Visit [facility] Oncology and Hematology [facility] [address] [place] [address] [address] Marco Dennis MD [address] [facility] [address] [place] [address] Health Maintenance Due Date Last Done Comments DTAP/TDAP/TD VACCINES (1 - Tdap) 1960 PNEUMOCOCCAL VACCINE 50+ YEA RS (1 of 1 - PCV) 11/22/1991 OSTEOPOROSIS SCREENING 2006 RSV VACCINE (60+ or ) (1 - 1-dose 75+ series) 2016 [place] Prev entative Visit/Annual Wellness Visit 05/29/2024 INFLUENZA VACCINE (#1) 2024 02/16/2022, 2020 ZOSTER VACCINE Completed 07/18/2022, 03/21/2022 Insurance [facility] [id number] [facility] Address: [facility] [address] [place] [address]
== END 2025-02-27 10:39 | disposition home or self-care (01) ==
LOC: ANHLAB 10:39
PROVIDERS: PCP Family Medicine; Visit Provider Internal Medicine Hematology & Oncology
DX: D64.9 Anemia, unspecified (principal)
CPT/HCPCS: 36415; 85025

== ENCOUNTER 2025-05-06 11:20 | Outpatient (CLI) | payer MEDICARE, SELFPAY ==
[2025-05-06 13:03] LABS: Magnesium 1.8 mg/dL (1.6-2.3)
[2025-05-06 13:05] LABS: Hematocrit 36.6 % (37.0-47.0); Hemoglobin 11.9 g/dL (12.0-15.0); Immature Granulocyte Percent A 0.3 % (0-0.5); Lymphocytes Absolute Auto 2.05 K/mm3 (0.9-3.2); Mean Corpuscular HGB Conc 32.5 g/dl (32-36); Mean Corpuscular Hemoglobin 33.0 pg (26-34); Mean Corpuscular Volume 101.4 fl (80-100); Nucleated Red Blood Cells Absolute Auto 0.000 K/mm3 (0.0-0.012); Nucleated Red Blood Cells Perc 0.0 % (0.0-0.2); Platelet Count Result 170 k/mm3 (150-375); Red Blood Count 3.61 M/mm3 (4.2-5.4); White Blood Count 3.5 K/mm3 (4.5-10.0)
[2025-05-06 13:12] LABS: Alanine Aminotransferase 20 U/L (6-35); Albumin Level 4.7 g/dL (3.5-5.1); Alkaline Phosphatase 69 U/L (38-126); Anion Gap 7 mmol/L (4-12); Aspartate Amino Transferase 41 U/L (14-36); Bilirubin,Total 1.1 mg/dL (0.2-1.3); Blood Urea Nitrogen 23 mg/dL (7-17); Calcium 10.3 mg/dL (8.4-10.2); Carbon Dioxide 26 mmol/L (22-30); Chloride 107 mmol/L (98-107); Cholesterol 182 mg/dL (0-200); Estimated Glomerular Filt Rate > 60; Glucose 96 mg/dL (65-110); HDL Direct 82 mg/dL; Potassium 4.3 mmol/L (3.4-5.0); Sodium 140 mmol/L (137-145); Total Protein 7.8 g/dL (6.3-8.2); Triglycerides 118 mg/dL (<150)
[2025-05-06 13:57] LABS: Thyroid Stimulating Hormone Reflex 3.710 uIU/mL (0.465-4.68)
[2025-05-06 14:08] LABS: Vitamin B12 615.0 pg/mL (239-931)
[2025-05-06 17:27] LABS: Hemoglobin A1C 5.4 % (<5.7)
== END 2025-05-06 11:21 | disposition home or self-care (01) ==
LOC: ANHGOSHLAB 11:20
PROVIDERS: PCP Family Medicine; Visit Provider Nurse Practitioner Family
DX: E78.5 Hyperlipidemia, unspecified (principal); I10 Essential (primary) hypertension; R79.89 Other specified abnormal findings of blood chemistry; R73.03 Prediabetes; E55.9 Vitamin D deficiency, unspecified
CPT/HCPCS: 36415; 80053; 80061; 82306; 82607; 83036; 83735; 84443; 85025